=== PATIENT | male | born 1940 | race Caucasian/White ===

== ENCOUNTER 2018-03-09 10:20 | Inpatient (IN) | payer MEDICARE, OTHER ==
[2018-03-09] MEDS ORDERED: Furosemide 40 MG/4 ML VIAL IVPUSH ONE (11:32)
[2018-03-09] MEDS ORDERED: Sodium Chloride 0.9% 10 ML Syringe FLUSH PRN ×3 (11:33→14:11)
--- NOTE | 2018-03-09 11:44 | EDM.PDOC ---
ED HPI GENERAL MEDICAL PROBLEM - General Chief Complaint: Cardiovascular Problem Stated Complaint: SOB AND LEGS SWELLING Time Seen by Provider: 03/09/18 11:01 Source of Information: Reports: Patient History Limitations: Reports: No Limitations - History of Present Illness INITIAL COMMENTS - FREE TEXT/NARRATIVE: Patient is a 77-year-old male who presents ED complaining of bilateral lower extremity swelling with increasing shortness of breath over the past 2 wks. 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 At one point patient was on chemotherapy to which has been discontinued. Currently he has a history of heart murmur secondary to rheumatic fever. Patient is more short of breath with exertion. He's been experiencing orthopnea with PND. Patient has been evaluated by cardiology and has had a echocardiogram and stress test with findings. Unknown when this occurred. Patient denies any increase weight as of recent. Baseline is approximately 135 pounds. Sputum has been clear frothy at times. He has no history of congestive heart failure. There's been no diarrhea Patient denies any fevers, chills, diaphoresis, nausea/ vomiting, blood in stool, and dysuria. He denies any additional medical history and is currently on no medications. Surgical history includes colectomy 20%, removal of liver approximate 9%, ankle cystectomy. Patient's PCP is Dr. Tatum. Patient does not smoke utilize alcohol or recreational drugs. Lower Abdomen Pain Score (Numeric/FACES): 7 - Related Data Allergies Allergy/AdvReac Type Severity Reaction Status Date / Time oxyplatin Allergy Other Uncoded 03/09/18 17:10 Past Medical History Oncologic (Cancer) History: Reports: Colon, Prostate Social & Family History - Tobacco Use Smoking Status *Q: Unknown Ever Smoked ED ROS GENERAL - Review of Systems Review Of Systems: See Below Constitutional: Reports: Decreased Appetite. Denies: Fever, Chills, Malaise, Weakness, Fatigue, Night Sweats, Diaphoresis HEENT: Reports: No Symptoms Respiratory: Reports: Shortness of Breath, Cough, Sputum. Denies: Wheezing, Pleuritic Chest Pain, Hemoptysis Cardiovascular: Reports: Dyspnea on Exertion, Orthopnea, PND. Denies: Chest Pain, Blood Pressure Problem, Claudication, Edema, Lightheadedness, Palpitations , Syncope GI/Abdominal: Reports: Abdominal Pain, Decreased Appetite. Denies: Black Stool , Bloody Stool, Constipation, Diarrhea, Hematemesis, Vomiting : Reports: No Symptoms Musculoskeletal: Reports: No Symptoms Skin: Reports: No Symptoms Neurological: Denies: Dizziness, Headache, Numbness, Pre-Existing Deficit, Tingling, Difficulty Walking, Weakness Psychiatric: Reports: No Symptoms ED EXAM, GENERAL - Physical Exam Exam: See Below Exam Limited By: No Limitations General Appearance: Alert, WD/WN, Mild Distress, Cachetic Eye Exam: Bilateral Eye: EOMI, Normal Inspection, PERRL Ears: Hearing Grossly Normal Nose: Normal Inspection Throat/Mouth: Normal Inspection, Normal Oropharynx, Normal Voice, No Airway Compromise Head: Atraumatic, Normocephalic Neck: Normal Inspection, Other (JVD) Respiratory/Chest: No Respiratory Distress, Lungs Clear, Normal Breath Sounds, No Accessory Muscle Use, Chest Non-Tender Cardiovascular: Normal Peripheral Pulses, Regular Rate, Rhythm, Systolic Murmur Peripheral Pulses: 4+: Radial (L), Radial (R) GI/Abdominal: Normal Bowel Sounds, Soft, No Organomegaly, No Distention, Tender (lower abdomen) Back Exam: Normal Inspection Extremities: Normal Inspection, Normal Range of Motion, Non-Tender, Normal Capillary Refill, Pedal Edema (pitting to the lower extremities bilaterally. extends to the knees. trace edema mid thigh. ) Neurological: Alert, Oriented, CN II-XII Intact, Normal Cognition, No Motor/ Sensory Deficits Psychiatric: Normal Affect, Normal Mood Skin Exam: Warm, Dry, Intact Course - Vital Signs Last Recorded V/S: Last Vital Signs Temp 99.3 F 03/11/18 08:27 Pulse 87 03/11/18 08:27 Resp 20 03/11/18 08:27 BP 131/76 03/11/18 08:27 Pulse Ox 97 03/11/18 08:27 - Orders/Labs/Meds Orders: Medication Orders Acetaminophen (Tylenol) 650 mg PO Q4H PRN PRN Reason: Pain (Mild 1-3)/fever Last Admin: 03/11/18 06:11 Dose: 650 mg Albuterol (Proventil Neb Soln) 2.5 mg NEB Q2H PRN PRN Reason: Shortness Of Breath/wheezing Albuterol/Ipratropium (Duoneb 3.0-0.5 Mg/3 Ml) 3 ml NEB Q4H PRN PRN Reason: Shortness Of Breath/wheezing Benzocaine/Menthol (Cepacol Sore Throat) 1 lozenge MUCMEM Q4HR PRN PRN Reason: Cough Last Admin: 03/10/18 17:22 Dose: 1 lozenge Admin: 03/09/18 20:40 Dose: 1 lozenge Bisacodyl (Dulcolax) 5 mg PO DAILY PRN PRN Reason: Constipation Docusate Sodium (Colace) 100 mg PO BID PRN PRN Reason: Constipation Dronabinol (Marinol) 2.5 mg PO TIDAC [facility] Last Admin: 03/11/18 06:13 Dose: 2.5 mg Admin: 03/10/18 17:18 Dose: 2.5 mg Admin: 03/10/18 12:30 Dose: 2.5 mg Admin: 03/10/18 09:24 Dose: 2.5 mg Enoxaparin Sodium (Lovenox) 40 mg SUBCUT 1100 [facility] Last Admin: 03/10/18 13:29 Dose: 40 mg Famotidine (Pepcid) 20 mg PO DAILY [facility] Last Admin: 03/11/18 09:00 Dose: 20 mg Admin: 03/10/18 09:24 Dose: 20 mg Hydralazine HCl (Apresoline) 20 mg IVPUSH Q4H PRN PRN Reason: Hypertension Last Admin: 03/09/18 22:25 Dose: 20 mg Sodium Chloride (Normal Saline) 250 mls @ 80 mls/hr IV ASDIRECTED [facility] Last Admin: 03/09/18 14:13 Dose: 80 mls/hr Furosemide 100 mg/ Sodium (Chloride) 100 mls @ 3 mls/hr IV TITRATE DIANNA; Protocol Lorazepam (Ativan) 2 mg IVPUSH Q4H PRN PRN Reason: Seizures Magnesium Hydroxide (Milk Of Magnesia) 30 ml PO Q12H PRN PRN Reason: Constipation Last Admin: 03/10/18 22:11 Dose: 30 ml Magnesium Sulfate (Pharmacy To Dose - Magnesium Replacement) 1 dose .XX ASDIRECTED [facility] Metoprolol Tartrate (Lopressor) 5 mg IVPUSH Q4H PRN PRN Reason: Tachycardia Last Admin: 03/10/18 00:04 Dose: 5 mg Mirtazapine (Remeron) 30 mg PO BEDTIME [facility] Last Admin: 03/10/18 20:45 Dose: 30 mg Admin: 03/09/18 20:57 Dose: 30 mg Morphine Sulfate (Morphine) 1 mg IVPUSH Q4H PRN PRN Reason: Pain (severe 7-10) Stop: 03/13/18 17:47 Last Admin: 03/10/18 09:52 Dose: 1 mg Admin: 03/10/18 06:35 Dose: 1 mg Admin: 03/09/18 22:49 Dose: 1 mg Ondansetron HCl (Zofran Odt) 4 mg PO Q4H PRN PRN Reason: nausea, able to take PO Ondansetron HCl (Zofran) 4 mg IV Q4H PRN PRN Reason: Nausea/Vomiting Oxycodone/Acetaminophen (Percocet 325-5 Mg) 1 tab PO Q4H PRN PRN Reason: Pain (moderate 4-6) Polyethylene Glycol (Miralax) 17 gm PO DAILY PRN PRN Reason: Constipation Potassium Chloride (Pharmacy To Dose - Potassium Replacement) 1 dose .XX ASDIRECTED [facility] Senna/Docusate Sodium (Senna Plus) 1 tab PO BID PRN PRN Reason: Constipation Sodium Chloride (Saline Flush) 10 ml FLUSH ASDIRECTED PRN PRN Reason: Keep Vein Open Last Admin: 03/09/18 12:13 Dose: 10 ml Sodium Chloride (Saline Flush) 10 ml FLUSH ONETIME PRN PRN Reason: IV FLUSH Sodium Chloride (Saline Flush) 10 ml FLUSH ONETIME PRN PRN Reason: IV FLUSH Last Admin: 03/09/18 14:13 Dose: 10 ml Temazepam (Restoril) 7.5 mg PO BEDTIME PRN PRN Reason: Sleep Last Admin: 03/10/18 22:09 Dose: 7.5 mg Labs: Laboratory Tests 03/09/18 03/09/18 03/09/18 Range/Units 12:10 12:10 12:10 WBC 6.65 (4.23-9.07) K/mm3 RBC 3.66 L (4.63-6.08) M/mm3 Hgb 12.2 L (13.7-17.5) gm/L Hct 37.4 L (40.1-51.0) % MCV 102.2 H (79.0-92.2) fl MCH 33.3 H (25.7-32.2) pg MCHC 32.6 (32.2-35.5) g/dl RDW Std Deviation 61.4 H (35.1-43.9) fL Plt Count 195 (163-337) K/mm3 MPV 9.5 (9.4-12.3) fl Neutrophils % (Manual) 79 H (40-60) % Band Neutrophils % 0 (0-10) % Lymphocytes % (Manual) 17 L (20-40) % Atypical Lymphs % 0 % Monocytes % (Manual) 3 (2-10) % Eosinophils % (Manual) 1 (0.8-7.0) % Basophils % (Manual) 0 L (0.2-1.2) Platelet Estimate Adequate Anisocytosis Moderate Macrocytosis 1+ slight RBC Morph Comment Abnormal Sodium 137 (136-145) mEq/L Potassium 3.6 (3.5-5.1) mEq/L Chloride 102 (98-107) mEq/L Carbon Dioxide 27 (21-32) mEq/L Anion Gap 11.6 (5-15) BUN 21 H (7-18) mg/dL Creatinine 1.0 (0.7-1.3) mg/dL Est Cr Clr Drug Dosing 53.58 mL/min Estimated GFR (MDRD) > 60 (>60) mL/min BUN/Creatinine Ratio 21.0 H (14-18) Glucose 117 H (83-115) mg/dL Calcium 8.9 (8.5-10.1) mg/dL Magnesium 1.9 (1.8-2.4) mg/dl Total Bilirubin 1.2 H (0.2-1.0) mg/dL AST 72 H (15-37) U/L ALT 64 H (16-63) U/L Alkaline Phosphatase 560 H (46-116) U/L Troponin I < 0.017 (0.00-0.056) ng/mL C-Reactive Protein (<1.0) mg/dL NT-Pro-B Natriuret Pep 555 H (0-450) pg/mL Total Protein 7.3 (6.4-8.2) g/dl Albumin 2.2 L (3.4-5.0) g/dl Globulin 5.1 gm/dL Albumin/Globulin Ratio 0.4 L (1-2) TSH 3rd Generation 3.658 (0.358-3.74) uIU/mL Urine Color (Yellow) Urine Appearance (Clear) Urine pH (5.0-8.0) Ur Specific Boykins (1.005-1.030) Urine Protein (Negative) Urine Glucose (UA) (Negative) Urine Ketones (Negative) Urine Occult Blood (Negative) Urine Nitrite (Negative) Urine Bilirubin (Negative) Urine Urobilinogen (0.2-1.0) Ur Leukocyte Esterase (Negative) Urine RBC (0-5) /hpf Urine WBC (0-5) /hpf Ur Epithelial Cells (0-5) /hpf Urine Bacteria (FEW) /hpf Urine Mucus (FEW) /hpf 03/09/18 03/09/18 Range/Units 12:10 13:35 WBC (4.23-9.07) K/mm3 RBC (4.63-6.08) M/mm3 Hgb (13.7-17.5) gm/L Hct (40.1-51.0) % MCV (79.0-92.2) fl MCH (25.7-32.2) pg MCHC (32.2-35.5) g/dl RDW Std Deviation (35.1-43.9) fL Plt Count (163-337) K/mm3 MPV (9.4-12.3) fl Neutrophils % (Manual) (40-60) % Band Neutrophils % (0-10) % Lymphocytes % (Manual) (20-40) % Atypical Lymphs % % Monocytes % (Manual) (2-10) % Eosinophils % (Manual) (0.8-7.0) % Basophils % (Manual) (0.2-1.2) Platelet Estimate Anisocytosis Macrocytosis RBC Morph Comment Sodium (136-145) mEq/L Potassium (3.5-5.1) mEq/L Chloride (98-107) mEq/L Carbon Dioxide (21-32) mEq/L Anion Gap (5-15) BUN (7-18) mg/dL Creatinine (0.7-1.3) mg/dL Est Cr Clr Drug Dosing mL/min Estimated GFR (MDRD) (>60) mL/min BUN/Creatinine Ratio (14-18) Glucose (83-115) mg/dL Calcium (8.5-10.1) mg/dL Magnesium (1.8-2.4) mg/dl Total Bilirubin (0.2-1.0) mg/dL AST (15-37) U/L ALT (16-63) U/L Alkaline Phosphatase (46-116) U/L Troponin I (0.00-0.056) ng/mL C-Reactive Protein 5.3 H* (<1.0) mg/dL NT-Pro-B Natriuret Pep (0-450) pg/mL Total Protein (6.4-8.2) g/dl Albumin (3.4-5.0) g/dl Globulin gm/dL Albumin/Globulin Ratio (1-2) TSH 3rd Generation (0.358-3.74) uIU/mL Urine Color Light yellow (Yellow) Urine Appearance Clear (Clear) Urine pH 7.0 (5.0-8.0) Ur Specific Boykins 1.020 (1.005-1.030) Urine Protein Negative (Negative) Urine Glucose (UA) Negative (Negative) Urine Ketones Negative (Negative) Urine Occult Blood Negative (Negative) Urine Nitrite Negative (Negative) Urine Bilirubin Negative (Negative) Urine Urobilinogen 0.2 (0.2-1.0) Ur Leukocyte Esterase Negative (Negative) Urine RBC Not seen (0-5) /hpf Urine WBC Not seen (0-5) /hpf Ur Epithelial Cells 0-5 (0-5) /hpf Urine Bacteria Not seen (FEW) /hpf Urine Mucus Not seen (FEW) /hpf Meds: Medications Generic Name Dose Route Start Last Admin Trade Name Freq PRN Reason Stop Dose Admin Acetaminophen 650 mg 03/09/18 17:30 03/11/18 06:11 Tylenol PO 650 mg Q4H PRN Administration Pain (Mild 1-3)/fever Albuterol 2.5 mg 03/09/18 17:30 Proventil Neb Soln NEB Q2H PRN Shortness Of Breath/wheezing Albuterol/Ipratropium 3 ml 03/09/18 17:30 Duoneb 3.0-0.5 Mg/3 Ml NEB Q4H PRN Shortness Of Breath/wheezing Benzocaine/Menthol 1 lozenge 03/09/18 18:37 03/10/18 17:22 Cepacol Sore Throat MUCMEM 1 lozenge Q4HR PRN Administration Cough Bisacodyl 5 mg 03/09/18 17:30 Dulcolax PO DAILY PRN Constipation Docusate Sodium 100 mg 03/09/18 17:30 Colace PO BID PRN Constipation Dronabinol 2.5 mg 03/10/18 07:00 03/11/18 06:13 Marinol PO 2.5 mg TIDAC DIANNA Administration Enoxaparin Sodium 40 mg 03/10/18 11:00 03/10/18 13:29 Lovenox SUBCUT 40 mg 1100 DIANNA Administration Famotidine 20 mg 03/10/18 09:00 03/11/18 09:00 Pepcid PO 20 mg DAILY [facility] Administration Hydralazine HCl 20 mg 03/09/18 20:11 03/09/18 22:25 Apresoline IVPUSH 20 mg Q4H PRN Administration Hypertension Sodium Chloride 250 mls @ 80 mls/hr 03/09/18 14:15 03/09/18 14:13 Normal Saline IV 80 mls/hr ASDIRECTED [facility] Administration Furosemide 100 mg/ Sodium 100 mls @ 3 mls/hr 03/11/18 06:00 Chloride IV TITRATE [facility] Protocol Lorazepam 2 mg 03/09/18 20:11 Ativan IVPUSH Q4H PRN Seizures Magnesium Hydroxide 30 ml 03/09/18 17:30 03/10/18 22:11 Milk Of Magnesia PO 30 ml Q12H PRN Administration Constipation Magnesium Sulfate 1 dose 03/09/18 20:15 Pharmacy To Dose - Magnesium Replacement .XX ASDIRECTED [facility] Metoprolol Tartrate 5 mg 03/09/18 20:11 03/10/18 00:04 Lopressor IVPUSH 5 mg Q4H PRN Administration Tachycardia Mirtazapine 30 mg 03/09/18 21:00 03/10/18 20:45 Remeron PO 30 mg BEDTIME DIANNA Administration Morphine Sulfate 1 mg 03/09/18 20:12 03/10/18 09:52 Morphine IVPUSH 03/13/18 17:47 1 mg Q4H PRN Administration Pain (severe 7-10) Ondansetron HCl 4 mg 03/09/18 17:30 Zofran Odt PO Q4H PRN nausea, able to take PO Ondansetron HCl 4 mg 03/09/18 17:30 Zofran IV Q4H PRN Nausea/Vomiting Oxycodone/Acetaminophen 1 tab 03/09/18 17:30 Percocet 325-5 Mg PO Q4H PRN Pain (moderate 4-6) Polyethylene Glycol 17 gm 03/09/18 17:30 Miralax PO DAILY PRN Constipation Potassium Chloride 1 dose 03/09/18 20:15 Pharmacy To Dose - Potassium Replacement .XX ASDIRECTED DIANNA Senna/Docusate Sodium 1 tab 03/09/18 17:30 Senna Plus PO BID PRN Constipation Sodium Chloride 10 ml 03/09/18 11:33 03/09/18 12:13 Saline Flush FLUSH 10 ml ASDIRECTED PRN Administration Keep Vein Open Sodium Chloride 10 ml 03/09/18 13:56 Saline Flush FLUSH ONETIME PRN IV FLUSH Sodium Chloride 10 ml 03/09/18 14:11 03/09/18 14:13 Saline Flush FLUSH 10 ml ONETIME PRN Administration IV FLUSH Temazepam 7.5 mg 03/09/18 17:30 03/10/18 22:09 Restoril PO 7.5 mg BEDTIME PRN Administration Sleep Discontinued Medications Generic Name Dose Route Start Last Admin Trade Name Freq PRN Reason Stop Dose Admin Famotidine 20 mg 03/09/18 21:00 03/09/18 20:58 Pepcid PO 20 mg BID DIANNA Administration Furosemide 40 mg 03/09/18 11:32 03/09/18 12:13 Lasix IVPUSH 03/09/18 11:33 40 mg NOW ONE Administration Heparin Sodium (Porcine) 500 units 03/10/18 13:00 03/10/18 13:27 Heparin Lock Flush 100 Units/Ml FLUSH 03/10/18 13:01 500 units ASDIRECTED ONE Administration Hydromorphone HCl 0.5 mg 03/09/18 17:30 Dilaudid IVPUSH Q2H PRN Pain (severe 7-10) Furosemide 100 mg/ Sodium 100 mls @ 3 mls/hr 03/10/18 07:00 Chloride IV TITRATE DIANNA Protocol Furosemide 100 mg/ Sodium 100 mls @ 3 mls/hr 03/10/18 01:00 03/10/18 01:19 Chloride IV 3 mls/hr TITRATE DIANNA Administration Protocol Iopamidol 100 ml 03/09/18 13:56 Isovue-300 (61%) IVPUSH 03/09/18 13:57 ONETIME ONE Iopamidol 100 ml 03/09/18 14:11 03/09/18 14:13 Isovue-370 (76%) IVPUSH 03/09/18 14:12 100 ml ONETIME ONE Administration Magnesium Oxide 400 mg 03/09/18 20:30 03/09/18 20:57 Magnesium Oxide PO 03/09/18 20:31 400 mg ONETIME ONE Administration Morphine Sulfate 2 mg 03/09/18 17:47 Morphine IVPUSH 03/10/18 17:47 Q2H PRN Pain (severe 7-10) Morphine Sulfate 1 mg 03/09/18 17:48 03/09/18 18:13 Morphine IVPUSH 03/09/18 17:49 1 mg ONETIME ONE Administration Potassium Chloride 40 meq 03/09/18 21:00 03/10/18 00:11 Klor-Con M20 PO 03/10/18 01:01 40 meq Q4H DIANNA Administration - Re-Assessments/Exams Free Text/Narrative Re-Assessment/Exam: IV established with Lasix 40 mg IVP. Patient has pitting edema to his lower extremities that extends up to the knee. Trace edema noted to the mid thigh. He' s been more increased shortness of breath. Has PND and orthopnea. Been coughing up clear fluids. Initial labs and studies will include CBC, chem 14, magnesium, proBNP, troponin , TSH, UA, bladder scan, chest x-ray with abdominal series. CXR: reviewed with Dr. Moy. Findings consistent for either diffuse lung CA and or pneumonia. I have ordered blood cultures x 2. Awaiting for labs to dictate treatment. In addition I have asked for Padmini with [facility] come speak with the family to discuss hospice. Per family and patient this has not been arranged with stopping chemo. Following administration of lasix patient states he is feeling better. States shortness of breath is not as severe. Awaiting for labs. 03/09/18 13:14 Abdominal series: Supine and upright views of the abdomen were obtained as well as frontal view of the chest. Comparison: No previous abdominal x-ray, previous chest x-ray of 10/07/13. Numerous nodular densities are seen throughout both sides of the chest most likely representing metastatic disease. Findings are an interval change from previous exam. Right sided infusion catheter is seen. Small bilateral pleural effusions are seen. Heart does not appear enlarged. Degenerative change is noted within both shoulders. Surgical clips are seen within the upper abdomen. Bowel gas pattern appears normal. Slight degenerative change noted within the spine. Impression: 1. Findings felt compatible with diffuse metastatic disease within both sides of the chest. 2. Small pleural effusions on both sides. 3. Other incidental findings. 03/09/18 13:31 Labs reviewed: White blood cell count 6.65, hemoglobin 12.2, platelet count 195, neutrophil percent is 79 with left shift, sodium 137, potassium 3.6, hCG level 0.6, creatinine 1.0, glucose 117, magnesium 1.9, AST ALT and alkaline phosphatase phosphatase are a all elevated. Total bilirubin is 1.2. Troponin less than 0.017. ProBNP is 555, and TSH 3.658. Albumin is 2.2. Total protein 7.3. UA is pending. 03/09/18 13:50 reassessment, per nursing staff patient became quite short of breath with exertion. SPO2 upon returning was 80%. Placed on O2 via NC with readings of 95%. Patient had 2 L/m. We will go ahead and obtain CT the chest abdomen pelvis with IV contrast only. Patient states he is unable to drink the oral contrast at this time. CT chest Technique: Multiple axial sections through the chest were obtained. Intravenous contrast was utilized. Study has been performed as a pulmonary angiogram protocol. Comparison: Prior chest CT study of 11/21/13. Findings: Moderately large bilateral pleural effusions are seen. Innumerable nodular densities are seen throughout both lungs compatible with multiple metastatic nodules. Pulmonary arteries are well-opacified. No filling defects are seen to indicate pulmonary embolism. Pleural effusions causes atelectasis within both lungs. Atherosclerotic calcification is seen within the aorta. There are several lymph nodes within the mediastinum believed to represent metastatic disease. Infusion port is seen from the right side. Bone window settings shows degenerative change within the spine. No acute osseous abnormality is seen. Degenerative change also noted within both shoulders. Impression: 1. Moderately large bilateral pleural effusions with causes prominent atelectasis on both sides of the lungs. 2. Innumerable metastatic nodules within both sides of the chest. Mild mediastinal adenopathy is noted. 3. Other incidental findings. No pulmonary embolism is seen. Note: Pleural effusions and lung nodules are an interval change from previous chest CT. Mediastinal lymph nodes are also an interval change. CT abdomen and pelvis Technique: Multiple axial sections were obtained from above the dome of the diaphragm inferiorly through the pubic symphysis. Intravenous contrast was utilized. No oral contrast was given. Comparison: Prior CT abdomen and pelvis exam of 11/21/13. Findings: Multiple surgical clips are seen within the abdomen. Several surgical clips are seen within the liver. Numerous low density metastatic lesions are seen within the right and left lobes of the liver. These findings have worsened from previous exam. Spleen appears within normal limits. Kidneys show symmetric contrast enhancement. Dilated left renal pelvis is seen which is an interval change from previous CT exam. Difficult to exclude a nonvisualized obstructing lesion within the proximal or mid ureter. Retroperitoneal adenopathy is present. Small amount of ascites is identified within the abdomen and pelvis. Diffuse body wall edema is also seen. Pancreas is mostly atrophied. Adrenal glands show no discrete abnormality although right adrenal gland is not well seen. Delayed images shows contrast within the bladder. Scattered degenerative change is noted within the spine. Impression: 1. Multiple low-density liver lesions which have increased in prominence from prior CT exam compatible with liver metastatic disease. 2. Mild retroperitoneal adenopathy is seen. 3. Small amount of ascites seen within the abdomen as well as diffuse body wall edema. 4. Dilated left renal pelvis, etiology not seen on this study and cannot exclude an obstructing proximal to mid ureteral lesion. This is an interval change from previous exam. Retrograde study would be needed to further evaluate if clinically indicated. 5. No other acute finding is seen. Discuss results of CT the chest and abdomen with the patient. Patient requests admission to the hospital here for bilateral thoracentesis. He will follow-up with urology outpatient for the dilated left renal pelvis suspecting obstruction from mid ureteral lesion. Patient does not want to be transferred to [place] for definitive treatment for bilateral pleural effusions and also retrograde study of the urinary system to evaluate for obstruction. I have asked nursing staff to obtain a MCG. I've attempted to contact Dr. Alanis with no answer. I have spoken with Dr. Alanis and he has accepted the patient. Departure - Departure Time of Disposition: 15:47 Disposition: Admitted As Inpatient 66 Condition: Poor Clinical Impression: Prostate cancer metastatic to multiple sites, Metastatic colorectal cancer, Pleural effusion, Bilateral pleural effusion Lung malignancy Qualifiers: Laterality: unspecified laterality Lung location: unspecified part of lung Qualified Code(s): C34.90 - Malignant neoplasm of unspecified part of unspecified bronchus or lung Ascites Qualifiers: Ascites type: malignant Qualified Code(s): R18.0 - Malignant ascites Liver cancer Qualifiers: Liver malignancy type: unspecified liver malignancy Qualified Code(s): C22.9 - Malignant neoplasm of liver, not specified as primary or secondary
--- NOTE | 2018-03-09 12:47 | CR ---
Abdominal series: Supine and upright views of the abdomen were obtained as well as frontal view of the chest. Comparison: No previous abdominal x-ray, previous chest x-ray of 10/07/13. Numerous nodular densities are seen throughout both sides of the chest most likely representing metastatic disease. Findings are an interval change from previous exam. Right sided infusion catheter is seen. Small bilateral pleural effusions are seen. Heart does not appear enlarged. Degenerative change is noted within both shoulders. Surgical clips are seen within the upper abdomen. Bowel gas pattern appears normal. Slight degenerative change noted within the spine. Impression: 1. Findings felt compatible with diffuse metastatic disease within both sides of the chest. 2. Small pleural effusions on both sides. 3. Other incidental findings. Diagnostic code #9
[2018-03-09] MEDS ORDERED: Iopamidol 612 MG/ML 100 ML Bottle IVPUSH ONE (13:56)
[2018-03-09] MEDS ORDERED: Iopamidol 755 Mg/ML 100 ML Bottle IVPUSH ONE (14:11)
[2018-03-09] MEDS ORDERED: Sodium Chloride 0.9% 250 ML IV SCH (14:15)
--- NOTE | 2018-03-09 14:54 | CT ---
CT chest Technique: Multiple axial sections through the chest were obtained. Intravenous contrast was utilized. Study has been performed as a pulmonary angiogram protocol. Comparison: Prior chest CT study of 11/21/13. Findings: Moderately large bilateral pleural effusions are seen. Innumerable nodular densities are seen throughout both lungs compatible with multiple metastatic nodules. Pulmonary arteries are well-opacified. No filling defects are seen to indicate pulmonary embolism. Pleural effusions causes atelectasis within both lungs. Atherosclerotic calcification is seen within the aorta. There are several lymph nodes within the mediastinum believed to represent metastatic disease. Infusion port is seen from the right side. Bone window settings shows degenerative change within the spine. No acute osseous abnormality is seen. Degenerative change also noted within both shoulders. Impression: 1. Moderately large bilateral pleural effusions with causes prominent atelectasis on both sides of the lungs. 2. Innumerable metastatic nodules within both sides of the chest. Mild mediastinal adenopathy is noted. 3. Other incidental findings. No pulmonary embolism is seen. Note: Pleural effusions and lung nodules are an interval change from previous chest CT. Mediastinal lymph nodes are also an interval change. Diagnostic code #9 CT abdomen and pelvis Technique: Multiple axial sections were obtained from above the dome of the diaphragm inferiorly through the pubic symphysis. Intravenous contrast was utilized. No oral contrast was given. Comparison: Prior CT abdomen and pelvis exam of 11/21/13. Findings: Multiple surgical clips are seen within the abdomen. Several surgical clips are seen within the liver. Numerous low density metastatic lesions are seen within the right and left lobes of the liver. These findings have worsened from previous exam. Spleen appears within normal limits. Kidneys show symmetric contrast enhancement. Dilated left renal pelvis is seen which is an interval change from previous CT exam. Difficult to exclude a nonvisualized obstructing lesion within the proximal or mid ureter. Retroperitoneal adenopathy is present. Small amount of ascites is identified within the abdomen and pelvis. Diffuse body wall edema is also seen. Pancreas is mostly atrophied. Adrenal glands show no discrete abnormality although right adrenal gland is not well seen. Delayed images shows contrast within the bladder. Scattered degenerative change is noted within the spine. Impression: 1. Multiple low-density liver lesions which have increased in prominence from prior CT exam compatible with liver metastatic disease. 2. Mild retroperitoneal adenopathy is seen. 3. Small amount of ascites seen within the abdomen as well as diffuse body wall edema. 4. Dilated left renal pelvis, etiology not seen on this study and cannot exclude an obstructing proximal to mid ureteral lesion. This is an interval change from previous exam. Retrograde study would be needed to further evaluate if clinically indicated. 5. No other acute finding is seen. Diagnostic code #9
--- NOTE | 2018-03-09 15:45 | PCM.HP ---
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 He complains of 7/10 abdominal pain. He reports no fever, chills, nausea , vomiting, diarrhea, chest pain, or GI/ complaints. His symptoms improved after receiving oxygen and 40 mg of Lasix in the ED. His initial workup in the ED showed a CBC remarkable for RBC 3.66, Hgb 12.2, HCT 37.4, MCV 102.2, MCH 33.3, RDW 61.4, neutrophils 79%, lymphocytes 17%. His chemistry is remarkable for BUN 21, Glucose 117, Bilirubin 1.2, AST 72, ALT 64, Alkaline Phos 560, CRP 5.3, BNP 555, Albumin 2.2. UA is not impressive for UTI. CXR shows diffuse metastatic disease with small pleural effusions within both sides of the chest. CT Chest shows moderately large bilateral pleural effusions with causes prominent atelectasis on both sides of the lungs and innumerable metastatic nodules within both sides of the chest. CT abdomen and pelvis shows liver metastatic disease, mild retroperitoneal adenopathy, small amount of ascites, diffuse body wall edema, dilated left renal pelvis He is subsequently admitted to the medical floor on telemetry. He is a DNR/DNI/ Comfort Measures. Her PCP is Dr Jerome Tatum. Lower Abdomen Pain Score (Numeric/FACES): 7 - Related Data Allergies/Adverse Reactions: Allergies Allergy/AdvReac Type Severity Reaction Status Date / Time oxyplatin Allergy Other Uncoded 03/09/18 17:10 Past Medical History Oncologic (Cancer) History: Reports: Colon, Prostate Social & Family History - Tobacco Use Smoking Status *Q: Unknown Ever Smoked H&P Review of Systems - Review of Systems: Review Of Systems: See Below General: Reports: Weakness, Decreased Appetite. Denies: Fever, Chills, Malaise , Fatigue, Night Sweats, Diaphoresis HEENT: Reports: No Symptoms Pulmonary: Reports: Shortness of Breath, Cough, Sputum. Denies: Wheezing, Pleuritic Chest Pain, Hemoptysis Cardiovascular: Reports: Dyspnea on Exertion, Orthopnea, PND, Edema (bilateral) . Denies: Chest Pain, Palpitations, Lightheadedness, Syncope, Blood Pressure Problem Gastrointestinal: Reports: Abdominal Pain (05/01), Decreased Appetite. Denies: Black Stool, Bloody Stool, Constipation, Diarrhea, Hematemesis, Vomiting Genitourinary: Reports: No Symptoms Musculoskeletal: Reports: No Symptoms Skin: Reports: No Symptoms Psychiatric: Reports: No Symptoms Neurological: Reports: Dizziness, Headache, Numbness, Pre-Existing Deficit, Tingling, Difficulty Walking, Weakness Hematologic/Lymphatic: Reports: No Symptoms Immunologic: Reports: No Symptoms Exam - Exam Exam: See Below - Vital Signs Vital Signs: Last Vital Signs Temp 99.0 F 03/09/18 10:32 Pulse 90 03/09/18 10:32 Resp 18 03/09/18 10:32 BP 127/84 03/09/18 10:32 Pulse Ox 89 L 03/09/18 10:32 Weight: 61.235 kg - Exam Quality Assessment: Supplemental Oxygen (2L nasal cannula) General: Alert, Oriented, Cooperative, Mild Distress, Other (Cachetic) HEENT: PERRLA, Hearing Intact, Mucosa Moist & [place], Nares Patent, Normal Nasal Septum, Posterior Pharynx Clear, Conjunctiva Clear, EOMI, EACs Clear, TMs Clear Neck: Supple, Trachea Midline, JVD Lungs: Clear to Auscultation, Normal Respiratory Effort Cardiovascular: Regular Rate, Regular Rhythm, Systolic Murmur GI/Abdominal Exam: Normal Bowel Sounds, Soft, No Organomegaly, No Distention, No Abnormal Bruit, No Mass, Pelvis Stable, Tender (lower abdomen) (Male) Exam: Deferred Rectal (Males) Exam: Deferred Extremities: Normal Inspection, Normal Range of Motion, Non-Tender, Normal Capillary Refill, Pedal Edema (bilateral, to the knees) Peripheral Pulses: 1+: Posterior Tibial (L), Posterior Tibial (R), Dorsalis Pedis (L), Dorsalis Pedis (R) Skin: Warm, Dry, Intact Neurological: Cranial Nerves Intact (grossly) Neuro Extensive - Mental Status: Alert, Oriented x3, Normal Mood/Affect, Normal Cognition, Memory Intact Psychiatric: Alert, Normal Affect, Normal Mood - Patient Data Lab Results Last 24 hrs: Laboratory Results - last 24 hr 03/09/18 03/09/18 03/09/18 Range/Units 12:10 12:10 12:10 WBC 6.65 (4.23-9.07) K/mm3 RBC 3.66 L (4.63-6.08) M/mm3 Hgb 12.2 L (13.7-17.5) gm/L Hct 37.4 L (40.1-51.0) % MCV 102.2 H (79.0-92.2) fl MCH 33.3 H (25.7-32.2) pg MCHC 32.6 (32.2-35.5) g/dl RDW Std Deviation 61.4 H (35.1-43.9) fL Plt Count 195 (163-337) K/mm3 MPV 9.5 (9.4-12.3) fl Neutrophils % (Manual) 79 H (40-60) % Band Neutrophils % 0 (0-10) % Lymphocytes % (Manual) 17 L (20-40) % Atypical Lymphs % 0 % Monocytes % (Manual) 3 (2-10) % Eosinophils % (Manual) 1 (0.8-7.0) % Basophils % (Manual) 0 L (0.2-1.2) Platelet Estimate Adequate Anisocytosis Moderate Macrocytosis 1+ slight RBC Morph Comment Abnormal Sodium 137 (136-145) mEq/L Potassium 3.6 (3.5-5.1) mEq/L Chloride 102 (98-107) mEq/L Carbon Dioxide 27 (21-32) mEq/L Anion Gap 11.6 (5-15) BUN 21 H (7-18) mg/dL Creatinine 1.0 (0.7-1.3) mg/dL Est Cr Clr Drug Dosing 53.58 mL/min Estimated GFR (MDRD) > 60 (>60) mL/min BUN/Creatinine Ratio 21.0 H (14-18) Glucose 117 H (83-115) mg/dL Calcium 8.9 (8.5-10.1) mg/dL Magnesium 1.9 (1.8-2.4) mg/dl Total Bilirubin 1.2 H (0.2-1.0) mg/dL AST 72 H (15-37) U/L ALT 64 H (16-63) U/L Alkaline Phosphatase 560 H (46-116) U/L Troponin I < 0.017 (0.00-0.056) ng/mL C-Reactive Protein (<1.0) mg/dL NT-Pro-B Natriuret Pep 555 H (0-450) pg/mL Total Protein 7.3 (6.4-8.2) g/dl Albumin 2.2 L (3.4-5.0) g/dl Globulin 5.1 gm/dL Albumin/Globulin Ratio 0.4 L (1-2) TSH 3rd Generation 3.658 (0.358-3.74) uIU/mL Urine Color (Yellow) Urine Appearance (Clear) Urine pH (5.0-8.0) Ur Specific Nordman (1.005-1.030) Urine Protein (Negative) Urine Glucose (UA) (Negative) Urine Ketones (Negative) Urine Occult Blood (Negative) Urine Nitrite (Negative) Urine Bilirubin (Negative) Urine Urobilinogen (0.2-1.0) Ur Leukocyte Esterase (Negative) 03/09/18 03/09/18 Range/Units 12:10 13:35 WBC (4.23-9.07) K/mm3 RBC (4.63-6.08) M/mm3 Hgb (13.7-17.5) gm/L Hct (40.1-51.0) % MCV (79.0-92.2) fl MCH (25.7-32.2) pg MCHC (32.2-35.5) g/dl RDW Std Deviation (35.1-43.9) fL Plt Count (163-337) K/mm3 MPV (9.4-12.3) fl Neutrophils % (Manual) (40-60) % Band Neutrophils % (0-10) % Lymphocytes % (Manual) (20-40) % Atypical Lymphs % % Monocytes % (Manual) (2-10) % Eosinophils % (Manual) (0.8-7.0) % Basophils % (Manual) (0.2-1.2) Platelet Estimate Anisocytosis Macrocytosis RBC Morph Comment Sodium (136-145) mEq/L Potassium (3.5-5.1) mEq/L Chloride (98-107) mEq/L Carbon Dioxide (21-32) mEq/L Anion Gap (5-15) BUN (7-18) mg/dL Creatinine (0.7-1.3) mg/dL Est Cr Clr Drug Dosing mL/min Estimated GFR (MDRD) (>60) mL/min BUN/Creatinine Ratio (14-18) Glucose (83-115) mg/dL Calcium (8.5-10.1) mg/dL Magnesium (1.8-2.4) mg/dl Total Bilirubin (0.2-1.0) mg/dL AST (15-37) U/L ALT (16-63) U/L Alkaline Phosphatase (46-116) U/L Troponin I (0.00-0.056) ng/mL C-Reactive Protein 5.3 H* (<1.0) mg/dL NT-Pro-B Natriuret Pep (0-450) pg/mL Total Protein (6.4-8.2) g/dl Albumin (3.4-5.0) g/dl Globulin gm/dL Albumin/Globulin Ratio (1-2) TSH 3rd Generation (0.358-3.74) uIU/mL Urine Color Light yellow (Yellow) Urine Appearance Clear (Clear) Urine pH 7.0 (5.0-8.0) Ur Specific Nordman 1.020 (1.005-1.030) Urine Protein Negative (Negative) Urine Glucose (UA) Negative (Negative) Urine Ketones Negative (Negative) Urine Occult Blood Negative (Negative) Urine Nitrite Negative (Negative) Urine Bilirubin Negative (Negative) Urine Urobilinogen 0.2 (0.2-1.0) Ur Leukocyte Esterase Negative (Negative) Result Diagrams: 03/09/18 12:10 03/09/18 12:10 - Problem List (1) End of life care SNOMED Code(s): 115913794, 946341066 ICD Code: Z51.5 - ENCOUNTER FOR PALLIATIVE CARE Status: Acute Priority: High Current Visit: Yes (2) Malignant pleural effusion SNOMED Code(s): 28334634 ICD Code: J91.0 - MALIGNANT PLEURAL EFFUSION Status: Acute Priority: High Current Visit: Yes (3) Stage IV carcinoma of colon SNOMED Code(s): 862504956 ICD Code: C18.9 - MALIGNANT NEOPLASM OF COLON, UNSPECIFIED Status: Chronic Priority: Low Current Visit: Yes (4) Stage IV adenocarcinoma of prostate SNOMED Code(s): 687502658, 165564628 ICD Code: C61 - MALIGNANT NEOPLASM OF PROSTATE Status: Chronic Priority: Low Current Visit: Yes (5) Metastasis to lung SNOMED Code(s): 38997482 ICD Code: C78.00 - SECONDARY MALIGNANT NEOPLASM OF UNSPECIFIED LUNG Status : Chronic Priority: Low Current Visit: Yes Qualifiers: Laterality: unspecified laterality Qualified Code(s): C78.00 - Secondary malignant neoplasm of unspecified lung (6) Cachexia SNOMED Code(s): 413089980 ICD Code: R64 - CACHEXIA Status: Chronic Priority: Low Current Visit: Yes (7) Dilated renal pelvis SNOMED Code(s): 443751414 ICD Code: N28.89 - OTHER SPECIFIED DISORDERS OF KIDNEY AND URETER Status: Acute Priority: Medium Current Visit: Yes (8) Metastases to the liver Status: Chronic Priority: Low Current Visit: Yes Problem List Initiated/Reviewed/Updated: Yes Orders Last 24hrs: Active Orders 24 hr Category Date Time Status Peripheral IV Care [RC] . DIRECTED Care 03/09/18 11:33 Active Consult to Poultry Farm Laborer [CONS] Routine Cons 03/09/18 12:27 Active CULTURE BLOOD [BC] Stat Lab 03/09/18 12:54 Received CULTURE BLOOD [BC] Stat Lab 03/09/18 13:04 Received UA W/MICROSCOPIC [URIN] Stat Lab 03/09/18 13:35 Received Sodium Chloride 0.9% [Normal Saline] 250 ml Med 03/09/18 14:15 Active IV ASDIRECTED Sodium Chloride 0.9% [Saline Flush] Med 03/09/18 11:33 Active 10 ml FLUSH ASDIRECTED PRN Sodium Chloride 0.9% [Saline Flush] Med 03/09/18 13:56 Active 10 ml FLUSH ONETIME PRN Sodium Chloride 0.9% [Saline Flush] Med 03/09/18 14:11 Active 10 ml FLUSH ONETIME PRN Blood Culture x2 Reflex Set [OM.PC] Stat Oth 03/09/18 12:26 Ordered Peripheral IV Insertion Adult [OM.PC] Routine Oth 03/09/18 11:33 Ordered Medication Orders Sodium Chloride (Normal Saline) 250 mls @ 80 mls/hr IV ASDIRECTED DIANNA Last Admin: 03/09/18 14:13 Dose: 80 mls/hr Sodium Chloride (Saline Flush) 10 ml FLUSH ASDIRECTED PRN PRN Reason: Keep Vein Open Last Admin: 03/09/18 12:13 Dose: 10 ml Sodium Chloride (Saline Flush) 10 ml FLUSH ONETIME PRN PRN Reason: IV FLUSH Sodium Chloride (Saline Flush) 10 ml FLUSH ONETIME PRN PRN Reason: IV FLUSH Last Admin: 03/09/18 14:13 Dose: 10 ml Assessment/Plan Comment:: I/P: Acute: End of Life Care -Comfort Care -Symptomatic treatment 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 -SOB with exertion, orthopnea, PND, bilateral leg edema -O2 84% on room air--> 98% on 2L nasal cannula -Lasix IV 40 mg given in ED -BNP 555, CRP 5.3 -CXR in ED--> metastatic disease with small pleural effusions within both sides of the chest -Chest CT in ED--> Bilateral pleural effusions with atelectasis on both sides of the lungs, metastatic nodules -Titrate O2 as needed to keep > 92% -Bilateral therapeutic thoracentesis indicated at this time Chachexia -Regular Diet -Consider Marinol, Steroids, or Remeron to help stimulate appetite Dilated left renal pelvis -Found on CT today -F/U with urology outpt; need retrograde study to further evaluate Chronic: Stage IV colon/prostate cancer Metastases to the liver and lungs Heart murmur secondary to rheumatic fever Plan: Transferred to Med-Surg today on telemetry He remains stable Other orders as indicated above Routine AM labs PT/OT DVT Prophylaxis--> DANE brandie Lovenox--> HOLD UNTIL BILATERAL THORACENTESIS DONE GI Prophylaxis--> Pepcid Ambulated as tolerated Code Status: DNR/DNI/Comfort Measures; PCP: Dr. Jerome Tatum Consult CM--> Need appt with urologist for dilated left renal pelvis found on CT today <Elio Alanis T - Last Filed: 03/09/18 18:41> H&P History of Present Illness - General Admit Problem/Dx: Admission Diagnosis/Problem Admission Diagnosis/Problem Hypoxia Exam - Vital Signs Vital Signs: Last Vital Signs Temp 36.9 C 03/09/18 16:38 Pulse 82 03/09/18 16:38 Resp 22 H 05/18/18 16:38 BP 128/85 03/09/18 16:38 Pulse Ox 98 03/09/18 16:38 - Patient Data Lab Results Last 24 hrs: Laboratory Results - last 24 hr 03/09/18 03/09/18 03/09/18 Range/Units 12:10 12:10 12:10 WBC 6.65 (4.23-9.07) K/mm3 RBC 3.66 L (4.63-6.08) M/mm3 Hgb 12.2 L (13.7-17.5) gm/L Hct 37.4 L (40.1-51.0) % MCV 102.2 H (79.0-92.2) fl MCH 33.3 H (25.7-32.2) pg MCHC 32.6 (32.2-35.5) g/dl RDW Std Deviation 61.4 H (35.1-43.9) fL Plt Count 195 (163-337) K/mm3 MPV 9.5 (9.4-12.3) fl Neutrophils % (Manual) 79 H (40-60) % Band Neutrophils % 0 (0-10) % Lymphocytes % (Manual) 17 L (20-40) % Atypical Lymphs % 0 % Monocytes % (Manual) 3 (2-10) % Eosinophils % (Manual) 1 (0.8-7.0) % Basophils % (Manual) 0 L (0.2-1.2) Platelet Estimate Adequate Anisocytosis Moderate Macrocytosis 1+ slight RBC Morph Comment Abnormal Sodium 137 (136-145) mEq/L Potassium 3.6 (3.5-5.1) mEq/L Chloride 102 (98-107) mEq/L Carbon Dioxide 27 (21-32) mEq/L Anion Gap 11.6 (5-15) BUN 21 H (7-18) mg/dL Creatinine 1.0 (0.7-1.3) mg/dL Est Cr Clr Drug Dosing 53.58 mL/min Estimated GFR (MDRD) > 60 (>60) mL/min BUN/Creatinine Ratio 21.0 H (14-18) Glucose 117 H (83-115) mg/dL Calcium 8.9 (8.5-10.1) mg/dL Magnesium 1.9 (1.8-2.4) mg/dl Total Bilirubin 1.2 H (0.2-1.0) mg/dL AST 72 H (15-37) U/L ALT 64 H (16-63) U/L Alkaline Phosphatase 560 H (46-116) U/L Troponin I < 0.017 (0.00-0.056) ng/mL C-Reactive Protein (<1.0) mg/dL NT-Pro-B Natriuret Pep 555 H (0-450) pg/mL Total Protein 7.3 (6.4-8.2) g/dl Albumin 2.2 L (3.4-5.0) g/dl Globulin 5.1 gm/dL Albumin/Globulin Ratio 0.4 L (1-2) TSH 3rd Generation 3.658 (0.358-3.74) uIU/mL Urine Color (Yellow) Urine Appearance (Clear) Urine pH (5.0-8.0) Ur Specific [place]man (1.005-1.030) Urine Protein (Negative) Urine Glucose (UA) (Negative) Urine Ketones (Negative) Urine Occult Blood (Negative) Urine Nitrite (Negative) Urine Bilirubin (Negative) Urine Urobilinogen (0.2-1.0) Ur Leukocyte Esterase (Negative) Urine RBC (0-5) /hpf Urine WBC (0-5) /hpf Ur Epithelial Cells (0-5) /hpf Urine Bacteria (FEW) /hpf Urine Mucus (FEW) /hpf 03/09/18 03/09/18 Range/Units 12:10 13:35 WBC (4.23-9.07) K/mm3 RBC (4.63-6.08) M/mm3 Hgb (13.7-17.5) gm/L Hct (40.1-51.0) % MCV (79.0-92.2) fl MCH (25.7-32.2) pg MCHC (32.2-35.5) g/dl RDW Std Deviation (35.1-43.9) fL Plt Count (163-337) K/mm3 MPV (9.4-12.3) fl Neutrophils % (Manual) (40-60) % Band Neutrophils % (0-10) % Lymphocytes % (Manual) (20-40) % Atypical Lymphs % % Monocytes % (Manual) (2-10) % Eosinophils % (Manual) (0.8-7.0) % Basophils % (Manual) (0.2-1.2) Platelet Estimate Anisocytosis Macrocytosis RBC Morph Comment Sodium (136-145) mEq/L Potassium (3.5-5.1) mEq/L Chloride (98-107) mEq/L Carbon Dioxide (21-32) mEq/L Anion Gap (5-15) BUN (7-18) mg/dL Creatinine (0.7-1.3) mg/dL Est Cr Clr Drug Dosing mL/min Estimated GFR (MDRD) (>60) mL/min BUN/Creatinine Ratio (14-18) Glucose (83-115) mg/dL Calcium (8.5-10.1) mg/dL Magnesium (1.8-2.4) mg/dl Total Bilirubin (0.2-1.0) mg/dL AST (15-37) U/L ALT (16-63) U/L Alkaline Phosphatase (46-116) U/L Troponin I (0.00-0.056) ng/mL C-Reactive Protein 5.3 H* (<1.0) mg/dL NT-Pro-B Natriuret Pep (0-450) pg/mL Total Protein (6.4-8.2) g/dl Albumin (3.4-5.0) g/dl Globulin gm/dL Albumin/Globulin Ratio (1-2) TSH 3rd Generation (0.358-3.74) uIU/mL Urine Color Light yellow (Yellow) Urine Appearance Clear (Clear) Urine pH 7.0 (5.0-8.0) Ur Specific Nordman 1.020 (1.005-1.030) Urine Protein Negative (Negative) Urine Glucose (UA) Negative (Negative) Urine Ketones Negative (Negative) Urine Occult Blood Negative (Negative) Urine Nitrite Negative (Negative) Urine Bilirubin Negative (Negative) Urine Urobilinogen 0.2 (0.2-1.0) Ur Leukocyte Esterase Negative (Negative) Urine RBC Not seen (0-5) /hpf Urine WBC Not seen (0-5) /hpf Ur Epithelial Cells 0-5 (0-5) /hpf Urine Bacteria Not seen (FEW) /hpf Urine Mucus Not seen (FEW) /hpf Result Diagrams: 03/09/18 12:10 03/09/18 12:10 Orders Last 24hrs: Active Orders 24 hr Category Date Time Status Admission Status [Patient Status] [ADT] Routine ADT 03/09/18 15:49 Active Ambulate [RC] ASDIRECTED Care 03/09/18 17:30 Active Cardiac Monitoring [RC] . DIRECTED Care 03/09/18 15:49 Active Height and Weight [RC] DAILY Care 03/09/18 17:30 Active Intake and Output [RC] QSHIFT Care 03/09/18 17:31 Active May Shower [RC] ASDIRECTED Care 03/09/18 17:30 Active Oxygen Therapy [RC] PRN Care 03/09/18 17:30 Active Oxygen Therapy [RC] PRN Care 03/09/18 17:30 Inactive Oxygen Therapy [RC] PRN Care 03/09/18 17:47 Active Pulse Oximetry [RC] PRN Care 03/09/18 17:31 Active RT Aerosol Therapy [RC] ASDIRECTED Care 03/09/18 17:34 Active Up With Assistance [RC] ASDIRECTED Care 03/09/18 17:30 Active Up to Chair [RC] ASDIRECTED Care 03/09/18 17:30 Active VTE/DVT Education [RC] PER UNIT ROUTINE Care 03/09/18 17:30 Active VTE/DVT Education [RC] PER UNIT ROUTINE Care 03/09/18 17:30 Inactive Vital Signs [RC] Q4H Care 03/09/18 17:30 Active Consult to Case Management [CONS] Routine Cons 03/09/18 17:30 Active Consult to Poultry Farm Laborer [CONS] Routine Cons 03/09/18 12:27 Active Consult to Spiritual Care [CONS] Routine Cons 03/09/18 17:30 Active OT Evaluation and Treatment [CONS] Routine Cons 03/09/18 17:30 Active PT Evaluation and Treatment [CONS] Routine Cons 03/09/18 17:30 Active Respiratory Care Assess and Treatment [CONS] Routine Cons 03/09/18 17:30 Active Regular Diet [DIET] Diet 03/10/18 Breakfast Active Chest 1V Frontal [CR] Routine Exams 03/09/18 17:33 Ordered BASIC METABOLIC PANEL,BMP [CHEM] AM Lab 03/10/18 05:11 Ordered BASIC METABOLIC PANEL,BMP [CHEM] AM Lab 03/11/18 05:11 Ordered BASIC METABOLIC PANEL,BMP [CHEM] AM Lab 03/12/18 05:11 Ordered C-REACTIVE PROTEIN [CHEM] AM Lab 03/10/18 05:11 Ordered C-REACTIVE PROTEIN [CHEM] AM Lab 03/11/18 05:11 Ordered C-REACTIVE PROTEIN [CHEM] AM Lab 03/12/18 05:11 Ordered CBC WITH AUTO DIFF [HEME] AM Lab 03/10/18 05:11 Ordered CBC WITH AUTO DIFF [HEME] AM Lab 03/11/18 05:11 Ordered CBC WITH AUTO DIFF [HEME] AM Lab 03/12/18 05:11 Ordered CULTURE BLOOD [BC] Stat Lab 03/09/18 12:54 Received CULTURE BLOOD [BC] Stat Lab 03/09/18 13:04 Received Acetaminophen [Tylenol] Med 03/09/18 17:30 Active 650 mg PO Q4H PRN Acetaminophen/oxyCODONE [Percocet 325-5 MG] Med 03/09/18 17:30 Active 1 tab PO Q4H PRN Albuterol [Proventil Neb Soln] Med 03/09/18 17:30 Active 2.5 mg NEB Q2H PRN Albuterol/Ipratropium [DuoNeb 3.0-0.5 MG/3 ML] Med 03/09/18 17:30 Active 3 ml NEB Q4H PRN Benzocaine/Cetylpyrd/Menthol [Cepacol Sore Throat] Med 03/09/18 18:37 Active 1 lozenge MUCMEM Q4HR PRN Bisacodyl [Dulcolax] Med 03/09/18 17:30 Active 5 mg PO DAILY PRN Docusate Sodium [Colace] Med 03/09/18 17:30 Active 100 mg PO BID PRN Docusate Sodium/Sennosides [Senna Plus] Med 03/09/18 17:30 Active 1 tab PO BID PRN Famotidine [Pepcid] Med 03/09/18 21:00 Active 20 mg PO BID Magnesium Hydroxide [Milk of Magnesia] Med 03/09/18 17:30 Active 30 ml PO Q12H PRN Morphine Med 03/09/18 17:47 Active 2 mg IVPUSH Q2H PRN Ondansetron [Zofran ODT] Med 03/09/18 17:30 Active 4 mg PO Q4H PRN Ondansetron [Zofran] Med 03/09/18 17:30 Active 4 mg IV Q4H PRN Polyethylene Glycol 3350 [MiraLAX] Med 03/09/18 17:30 Active 17 gm PO DAILY PRN Sodium Chloride 0.9% [Normal Saline] 250 ml Med 03/09/18 14:15 Active IV ASDIRECTED Sodium Chloride 0.9% [Saline Flush] Med 03/09/18 11:33 Active 10 ml FLUSH ASDIRECTED PRN Sodium Chloride 0.9% [Saline Flush] Med 03/09/18 13:56 Active 10 ml FLUSH ONETIME PRN Sodium Chloride 0.9% [Saline Flush] Med 03/09/18 14:11 Active 10 ml FLUSH ONETIME PRN Temazepam [Restoril] Med 03/09/18 17:30 Active 7.5 mg PO BEDTIME PRN Antiembolic Hose [OM.PC] Per Unit Routine Oth 03/09/18 17:32 Ordered Blood Culture x2 Reflex Set [OM.PC] Stat Oth 03/09/18 12:26 Ordered Peripheral IV Insertion Adult [OM.PC] Routine Oth 03/09/18 11:33 Ordered Resuscitation Status Routine Resus Stat 03/09/18 17:29 Ordered Medication Orders Acetaminophen (Tylenol) 650 mg PO Q4H PRN PRN Reason: Pain (Mild 1-3)/fever Albuterol (Proventil Neb Soln) 2.5 mg NEB Q2H PRN PRN Reason: Shortness Of Breath/wheezing Albuterol/Ipratropium (Duoneb 3.0-0.5 Mg/3 Ml) 3 ml NEB Q4H PRN PRN Reason: Shortness Of Breath/wheezing Benzocaine/Menthol (Cepacol Sore Throat) 1 lozenge MUCMEM Q4HR PRN PRN Reason: Cough Bisacodyl (Dulcolax) 5 mg PO DAILY PRN PRN Reason: Constipation Docusate Sodium (Colace) 100 mg PO BID PRN PRN Reason: Constipation Famotidine (Pepcid) 20 mg PO BID DIANNA Sodium Chloride (Normal Saline) 250 mls @ 80 mls/hr IV ASDIRECTED DIANNA Last Admin: 03/09/18 14:13 Dose: 80 mls/hr Magnesium Hydroxide (Milk Of Magnesia) 30 ml PO Q12H PRN PRN Reason: Constipation Morphine Sulfate (Morphine) 2 mg IVPUSH Q2H PRN PRN Reason: Pain (severe 7-10) Stop: 03/10/18 17:47 Ondansetron HCl (Zofran Odt) 4 mg PO Q4H PRN PRN Reason: nausea, able to take PO Ondansetron HCl (Zofran) 4 mg IV Q4H PRN PRN Reason: Nausea/Vomiting Oxycodone/Acetaminophen (Percocet 325-5 Mg) 1 tab PO Q4H PRN PRN Reason: Pain (moderate 4-6) Polyethylene Glycol (Miralax) 17 gm PO DAILY PRN PRN Reason: Constipation Senna/Docusate Sodium (Senna Plus) 1 tab PO BID PRN PRN Reason: Constipation Sodium Chloride (Saline Flush) 10 ml FLUSH ASDIRECTED PRN PRN Reason: Keep Vein Open Last Admin: 03/09/18 12:13 Dose: 10 ml Sodium Chloride (Saline Flush) 10 ml FLUSH ONETIME PRN PRN Reason: IV FLUSH Sodium Chloride (Saline Flush) 10 ml FLUSH ONETIME PRN PRN Reason: IV FLUSH Last Admin: 03/09/18 14:13 Dose: 10 ml Temazepam (Restoril) 7.5 mg PO BEDTIME PRN PRN Reason: Sleep
[2018-03-09] MEDS ORDERED: Docusate Sodium 100 MG Cap PO PRN (17:30)
[2018-03-09] MEDS ORDERED: Albuterol/Ipratropium 3.0-0.5 MG/3 ML Neb Soln NEB PRN (17:30)
[2018-03-09] MEDS ORDERED: Albuterol 0.083% 2.5 MG/3 ML Neb Soln NEB PRN (17:30)
[2018-03-09] MEDS ORDERED: Polyethylene Glycol 3350 Powder 17 GM Packet PO PRN (17:30)
[2018-03-09] MEDS ORDERED: Acetaminophen 325 MG Tab PO PRN (17:30)
[2018-03-09] MEDS ORDERED: HYDROmorphone 0.5 MG/0.5 ML SYRINGE IVPUSH PRN (17:30)
[2018-03-09] MEDS ORDERED: Temazepam 7.5 MG Cap PO PRN (17:30)
[2018-03-09] MEDS ORDERED: Ondansetron 4 MG/2 ML SDV IV PRN (17:30)
[2018-03-09] MEDS ORDERED: Magnesium Hydroxide 400 MG/5 ML Susp 30 ML Cup PO PRN (17:30)
[2018-03-09] MEDS ORDERED: Ondansetron 4 MG Tab.DIS PO PRN (17:30)
[2018-03-09] MEDS ORDERED: Bisacodyl 5 MG Tab PO PRN (17:30)
[2018-03-09] MEDS ORDERED: Acetaminophen/oxyCODONE 325-5 MG Tab PO PRN (17:30)
[2018-03-09] MEDS ORDERED: Morphine 2 MG/ML Syringe IVPUSH PRN (17:47)
[2018-03-09] MEDS ORDERED: Morphine 2 MG/ML Syringe IVPUSH ONE (17:48)
--- NOTE | 2018-03-09 18:39 | PCM.PRNOTE ---
- Free Text/Narrative Note: DATE OF PROCEDURE: 03/09/2018 PREOPERATIVE DIAGNOSIS: Bilateral Pleural Effusion POSTOPERATIVE DIAGNOSIS: Right Sided Pleural Effusion PROCEDURE PERFORMED: U/S Guided Therapeutic Right Sided Thoracentesis SURGEON: Odalis Zee PA-C SHADOWGRAPH OPERATOR: Elio Alanis DO DESCRIPTION OF PROCEDURE: After informed consent was obtained, signed, the patient had ultrasound localization in the right hemithorax. The patient was sterilely prepped and topical lidocaine was induced. Stab incision was made and a thoracentesis catheter was inserted and 1450 mL of clear kristen colored fluid was obtained without difficulty. Estimated Blood Loss: Minimal The patient tolerated the procedure well w/o any complications. Post procedure chest x-ray is pending.
--- NOTE | 2018-03-09 19:00 | CR ---
Chest: Portable view of the chest is obtained in expiration. Comparison: Prior chest x-ray performed earlier on the same day (11:35 AM) and chest CT of 03/09/18 (2:23 PM). Left-sided pleural effusion is seen. Decreased right sided pleural effusion is seen from prior chest CT. No pneumothorax is appreciated. Diffuse nodular densities are seen throughout the chest. Heart size and mediastinum are within normals. Right sided infusion catheter is seen. Bony structures are unchanged.. Impression: 1. Decreased right-sided pleural effusion. No pneumothorax is seen. 2. Continuing left-sided pleural effusion with multiple nodular densities within the chest. Diagnostic code #3
[2018-03-09] MEDS ORDERED: LORazepam 2 MG/ML SDV IVPUSH PRN (20:11)
[2018-03-09] MEDS ORDERED: hydrALAZINE 20 MG/ML SDV IVPUSH PRN (20:11)
[2018-03-09] MEDS ORDERED: Metoprolol Tartrate 5 MG/5 ML SDV IVPUSH PRN (20:11)
[2018-03-09] MEDS ORDERED: Magnesium Oxide 400 MG Tab PO ONE (20:30)
[2018-03-09] MEDS: Benzocaine/Cetylpyridinium/Menthol Lozenge MUCMEM PRN (20:40)
[2018-03-09] MEDS: Potassium Chloride 20 MEQ Tab.ER PO SCH (20:54)
[2018-03-09] MEDS: Mirtazapine 30 MG Tab PO SCH (20:57)
[2018-03-09] MEDS ORDERED: Famotidine 20 MG Tab PO SCH (21:00)
[2018-03-09] MEDS: Morphine 2 MG/ML Syringe IVPUSH PRN (22:49)
[2018-03-10] MEDS: Potassium Chloride 20 MEQ Tab.ER PO SCH (00:11)
[2018-03-10] MEDS ORDERED: Furosemide 100 MG in Sodium Chloride 0.9% 90 ML IV SCH ×2 (01:00→07:00)
[2018-03-10] MEDS: Morphine 2 MG/ML Syringe IVPUSH PRN ×2 (06:35→09:52)
--- NOTE | 2018-03-10 07:40 | PCM.PN ---
- General Info Date of Service: 03/10/18 Admission Dx/Problem (Free Text): Admission Diagnosis/Problem Admission Diagnosis/Problem Hypoxia Functional Status: Reports: Pain Controlled, Tolerating Diet, Ambulating, Urinating. Denies: New Symptoms - Review of Systems General: Denies: Fever, Weakness, Fatigue, Malaise, Chills Cardiovascular: Reports: Chest Pain. Denies: Palpitations, Dyspnea on Exertion , Edema, Lightheadedness Gastrointestinal: Reports: Abdominal Pain. Denies: Nausea, Vomiting Genitourinary: Reports: Frequency Musculoskeletal: Reports: No Symptoms, Shoulder Pain Skin: Denies: Mottled, Pallor, Diaphoresis, Bruising, Rash Neurological: Reports: Weakness. Denies: Difficulty Walking, Gait Disturbance Psychiatric: Denies: Depression, Anxiety, Agitation, Hallucinations Systems Review Comment:: He did not sleep well last. He could not get comfortable. He did not ask for sleeping pill. His labs and vitals are stable. His appetite is still poor. - Patient Data Vitals - Most Recent: Last Vital Signs Temp 37.4 C 03/10/18 03:53 Pulse 89 03/10/18 03:53 Resp 20 03/10/18 03:53 BP 116/74 03/10/18 03:53 Pulse Ox 96 03/10/18 03:53 Weight - Most Recent: 61.235 kg I&O - Last 24 Hours: Intake & Output 03/09/18 03/10/18 03/10/18 22:59 06:59 14:59 Intake Total 50 66 Output Total 1650 500 Balance -1600 -434 Lab Results Last 24 Hours: Laboratory Results - last 24 hr 03/09/18 03/09/18 03/09/18 Range/Units 12:10 12:10 12:10 WBC 6.65 (4.23-9.07) K/mm3 RBC 3.66 L (4.63-6.08) M/mm3 Hgb 12.2 L (13.7-17.5) gm/L Hct 37.4 L (40.1-51.0) % MCV 102.2 H (79.0-92.2) fl MCH 33.3 H (25.7-32.2) pg MCHC 32.6 (32.2-35.5) g/dl RDW Std Deviation 61.4 H (35.1-43.9) fL Plt Count 195 (163-337) K/mm3 MPV 9.5 (9.4-12.3) fl Neut % (Auto) (34.0-67.9) % Lymph % (Auto) (21.8-53.1) % [place] % (Auto) (5.3-12.2) % Eos % (Auto) (0.8-7.0) Baso % (Auto) (0.1-1.2) % Neut # (Auto) (1.78-5.38) K/mm3 Lymph # (Auto) (1.32-3.57) K/mm3 [place] # (Auto) (0.30-0.82) K/mm3 Eos # (Auto) (0.04-0.54) K/mm3 Baso # (Auto) (0.01-0.08) K/mm3 Neutrophils % (Manual) 79 H (40-60) % Band Neutrophils % 0 (0-10) % Lymphocytes % (Manual) 17 L (20-40) % Atypical Lymphs % 0 % Monocytes % (Manual) 3 (2-10) % Eosinophils % (Manual) 1 (0.8-7.0) % Basophils % (Manual) 0 L (0.2-1.2) Manual Slide Review Platelet Estimate Adequate Anisocytosis Moderate Macrocytosis 1+ slight RBC Morph Comment Abnormal Sodium 137 (136-145) mEq/L Potassium 3.6 (3.5-5.1) mEq/L Chloride 102 (98-107) mEq/L Carbon Dioxide 27 (21-32) mEq/L Anion Gap 11.6 (5-15) BUN 21 H (7-18) mg/dL Creatinine 1.0 (0.7-1.3) mg/dL Est Cr Clr Drug Dosing 53.58 mL/min Estimated GFR (MDRD) > 60 (>60) mL/min BUN/Creatinine Ratio 21.0 H (14-18) Glucose 117 H (83-115) mg/dL Calcium 8.9 (8.5-10.1) mg/dL Magnesium 1.9 (1.8-2.4) mg/dl Total Bilirubin 1.2 H (0.2-1.0) mg/dL AST 72 H (15-37) U/L ALT 64 H (16-63) U/L Alkaline Phosphatase 560 H (46-116) U/L Troponin I < 0.017 (0.00-0.056) ng/mL C-Reactive Protein (<1.0) mg/dL NT-Pro-B Natriuret Pep 555 H (0-450) pg/mL Total Protein 7.3 (6.4-8.2) g/dl Albumin 2.2 L (3.4-5.0) g/dl Globulin 5.1 gm/dL Albumin/Globulin Ratio 0.4 L (1-2) TSH 3rd Generation 3.658 (0.358-3.74) uIU/mL Urine Color (Yellow) Urine Appearance (Clear) Urine pH (5.0-8.0) Ur Specific [place] (1.005-1.030) Urine Protein (Negative) Urine Glucose (UA) (Negative) Urine Ketones (Negative) Urine Occult Blood (Negative) Urine Nitrite (Negative) Urine Bilirubin (Negative) Urine Urobilinogen (0.2-1.0) Ur Leukocyte Esterase (Negative) Urine RBC (0-5) /hpf Urine WBC (0-5) /hpf Ur Epithelial Cells (0-5) /hpf Urine Bacteria (FEW) /hpf Urine Mucus (FEW) /hpf 03/09/18 03/09/18 03/10/18 Range/Units 12:10 13:35 05:51 WBC 8.19 (4.23-9.07) K/mm3 RBC 3.92 L (4.63-6.08) M/mm3 Hgb 12.9 L (13.7-17.5) gm/L Hct 40.3 (40.1-51.0) % MCV 102.8 H (79.0-92.2) fl MCH 32.9 H (25.7-32.2) pg MCHC 32.0 L (32.2-35.5) g/dl RDW Std Deviation 63.0 H (35.1-43.9) fL Plt Count 205 (163-337) K/mm3 MPV 9.6 (9.4-12.3) fl Neut % (Auto) 82.4 H (34.0-67.9) % Lymph % (Auto) 7.2 L (21.8-53.1) % [place] % (Auto) 9.6 (5.3-12.2) % Eos % (Auto) 0.5 L (0.8-7.0) Baso % (Auto) 0.1 (0.1-1.2) % Neut # (Auto) 6.74 H (1.78-5.38) K/mm3 Lymph # (Auto) 0.59 L (1.32-3.57) K/mm3 [place] # (Auto) 0.79 (0.30-0.82) K/mm3 Eos # (Auto) 0.04 (0.04-0.54) K/mm3 Baso # (Auto) 0.01 (0.01-0.08) K/mm3 Neutrophils % (Manual) (40-60) % Band Neutrophils % (0-10) % Lymphocytes % (Manual) (20-40) % Atypical Lymphs % % Monocytes % (Manual) (2-10) % Eosinophils % (Manual) (0.8-7.0) % Basophils % (Manual) (0.2-1.2) Manual Slide Review Abnormal smear Platelet Estimate Anisocytosis Macrocytosis RBC Morph Comment Sodium (136-145) mEq/L Potassium (3.5-5.1) mEq/L Chloride (98-107) mEq/L Carbon Dioxide (21-32) mEq/L Anion Gap (5-15) BUN (7-18) mg/dL Creatinine (0.7-1.3) mg/dL Est Cr Clr Drug Dosing mL/min Estimated GFR (MDRD) (>60) mL/min BUN/Creatinine Ratio (14-18) Glucose (83-115) mg/dL Calcium (8.5-10.1) mg/dL Magnesium (1.8-2.4) mg/dl Total Bilirubin (0.2-1.0) mg/dL AST (15-37) U/L ALT (16-63) U/L Alkaline Phosphatase (46-116) U/L Troponin I (0.00-0.056) ng/mL C-Reactive Protein 5.3 H* (<1.0) mg/dL NT-Pro-B Natriuret Pep (0-450) pg/mL Total Protein (6.4-8.2) g/dl Albumin (3.4-5.0) g/dl Globulin gm/dL Albumin/Globulin Ratio (1-2) TSH 3rd Generation (0.358-3.74) uIU/mL Urine Color Light yellow (Yellow) Urine Appearance Clear (Clear) Urine pH 7.0 (5.0-8.0) Ur Specific [place] 1.020 (1.005-1.030) Urine Protein Negative (Negative) Urine Glucose (UA) Negative (Negative) Urine Ketones Negative (Negative) Urine Occult Blood Negative (Negative) Urine Nitrite Negative (Negative) Urine Bilirubin Negative (Negative) Urine Urobilinogen 0.2 (0.2-1.0) Ur Leukocyte Esterase Negative (Negative) Urine RBC Not seen (0-5) /hpf Urine WBC Not seen (0-5) /hpf Ur Epithelial Cells 0-5 (0-5) /hpf Urine Bacteria Not seen (FEW) /hpf Urine Mucus Not seen (FEW) /hpf 03/10/18 Range/Units 05:51 WBC (4.23-9.07) K/mm3 RBC (4.63-6.08) M/mm3 Hgb (13.7-17.5) gm/L Hct (40.1-51.0) % MCV (79.0-92.2) fl MCH (25.7-32.2) pg MCHC (32.2-35.5) g/dl RDW Std Deviation (35.1-43.9) fL Plt Count (163-337) K/mm3 MPV (9.4-12.3) fl Neut % (Auto) (34.0-67.9) % Lymph % (Auto) (21.8-53.1) % [place] % (Auto) (5.3-12.2) % Eos % (Auto) (0.8-7.0) Baso % (Auto) (0.1-1.2) % Neut # (Auto) (1.78-5.38) K/mm3 Lymph # (Auto) (1.32-3.57) K/mm3 [place] # (Auto) (0.30-0.82) K/mm3 Eos # (Auto) (0.04-0.54) K/mm3 Baso # (Auto) (0.01-0.08) K/mm3 Neutrophils % (Manual) (40-60) % Band Neutrophils % (0-10) % Lymphocytes % (Manual) (20-40) % Atypical Lymphs % % Monocytes % (Manual) (2-10) % Eosinophils % (Manual) (0.8-7.0) % Basophils % (Manual) (0.2-1.2) Manual Slide Review Platelet Estimate Anisocytosis Macrocytosis RBC Morph Comment Sodium 139 (136-145) mEq/L Potassium 4.1 (3.5-5.1) mEq/L Chloride 103 (98-107) mEq/L Carbon Dioxide 29 (21-32) mEq/L Anion Gap 11.1 (5-15) BUN 21 H (7-18) mg/dL Creatinine 1.2 (0.7-1.3) mg/dL Est Cr Clr Drug Dosing 44.65 mL/min Estimated GFR (MDRD) 59 (>60) mL/min BUN/Creatinine Ratio 17.5 (14-18) Glucose 94 (83-115) mg/dL Calcium 8.6 (8.5-10.1) mg/dL Magnesium (1.8-2.4) mg/dl Total Bilirubin (0.2-1.0) mg/dL AST (15-37) U/L ALT (16-63) U/L Alkaline Phosphatase (46-116) U/L Troponin I (0.00-0.056) ng/mL C-Reactive Protein 5.5 H* (<1.0) mg/dL NT-Pro-B Natriuret Pep (0-450) pg/mL Total Protein (6.4-8.2) g/dl Albumin (3.4-5.0) g/dl Globulin gm/dL Albumin/Globulin Ratio (1-2) TSH 3rd Generation (0.358-3.74) uIU/mL Urine Color (Yellow) Urine Appearance (Clear) Urine pH (5.0-8.0) Ur Specific [place] (1.005-1.030) Urine Protein (Negative) Urine Glucose (UA) (Negative) Urine Ketones (Negative) Urine Occult Blood (Negative) Urine Nitrite (Negative) Urine Bilirubin (Negative) Urine Urobilinogen (0.2-1.0) Ur Leukocyte Esterase (Negative) Urine RBC (0-5) /hpf Urine WBC (0-5) /hpf Ur Epithelial Cells (0-5) /hpf Urine Bacteria (FEW) /hpf Urine Mucus (FEW) /hpf Med Orders - Current: Current Medications Acetaminophen (Tylenol) 650 mg PO Q4H PRN PRN Reason: Pain (Mild 1-3)/fever Albuterol (Proventil Neb Soln) 2.5 mg NEB Q2H PRN PRN Reason: Shortness Of Breath/wheezing Albuterol/Ipratropium (Duoneb 3.0-0.5 Mg/3 Ml) 3 ml NEB Q4H PRN PRN Reason: Shortness Of Breath/wheezing Benzocaine/Menthol (Cepacol Sore Throat) 1 lozenge MUCMEM Q4HR PRN PRN Reason: Cough Last Admin: 03/09/18 20:40 Dose: 1 lozenge Bisacodyl (Dulcolax) 5 mg PO DAILY PRN PRN Reason: Constipation Docusate Sodium (Colace) 100 mg PO BID PRN PRN Reason: Constipation Dronabinol (Marinol) 2.5 mg PO TIDAC DIANNA Enoxaparin Sodium (Lovenox) 30 mg SUBCUT Q24H DIANNA Famotidine (Pepcid) 20 mg PO BID [facility] Last Admin: 03/09/18 20:58 Dose: 20 mg Hydralazine HCl (Apresoline) 20 mg IVPUSH Q4H PRN PRN Reason: Hypertension Last Admin: 03/09/18 22:25 Dose: 20 mg Sodium Chloride (Normal Saline) 250 mls @ 80 mls/hr IV ASDIRECTED DIANNA Last Admin: 03/09/18 14:13 Dose: 80 mls/hr Furosemide 100 mg/ Sodium (Chloride) 100 mls @ 3 mls/hr IV TITRATE DIANNA; Protocol Last Admin: 03/10/18 01:19 Dose: 3 mls/hr Lorazepam (Ativan) 2 mg IVPUSH Q4H PRN PRN Reason: Seizures Magnesium Hydroxide (Milk Of Magnesia) 30 ml PO Q12H PRN PRN Reason: Constipation Magnesium Sulfate (Pharmacy To Dose - Magnesium Replacement) 1 dose .XX ASDIRECTED [facility] Metoprolol Tartrate (Lopressor) 5 mg IVPUSH Q4H PRN PRN Reason: Tachycardia Last Admin: 03/10/18 00:04 Dose: 5 mg Mirtazapine (Remeron) 30 mg PO BEDTIME DIANNA Last Admin: 03/09/18 20:57 Dose: 30 mg Morphine Sulfate (Morphine) 1 mg IVPUSH Q4H PRN PRN Reason: Pain (severe 7-10) Stop: 03/13/18 17:47 Last Admin: 03/10/18 06:35 Dose: 1 mg Ondansetron HCl (Zofran Odt) 4 mg PO Q4H PRN PRN Reason: nausea, able to take PO Ondansetron HCl (Zofran) 4 mg IV Q4H PRN PRN Reason: Nausea/Vomiting Oxycodone/Acetaminophen (Percocet 325-5 Mg) 1 tab PO Q4H PRN PRN Reason: Pain (moderate 4-6) Polyethylene Glycol (Miralax) 17 gm PO DAILY PRN PRN Reason: Constipation Potassium Chloride (Pharmacy To Dose - Potassium Replacement) 1 dose .XX ASDIRECTED DIANNA Senna/Docusate Sodium (Senna Plus) 1 tab PO BID PRN PRN Reason: Constipation Sodium Chloride (Saline Flush) 10 ml FLUSH ASDIRECTED PRN PRN Reason: Keep Vein Open Last Admin: 03/09/18 12:13 Dose: 10 ml Sodium Chloride (Saline Flush) 10 ml FLUSH ONETIME PRN PRN Reason: IV FLUSH Sodium Chloride (Saline Flush) 10 ml FLUSH ONETIME PRN PRN Reason: IV FLUSH Last Admin: 03/09/18 14:13 Dose: 10 ml Temazepam (Restoril) 7.5 mg PO BEDTIME PRN PRN Reason: Sleep Discontinued Medications Furosemide (Lasix) 40 mg IVPUSH NOW ONE Stop: 03/09/18 11:33 Last Admin: 03/09/18 12:13 Dose: 40 mg Hydromorphone HCl (Dilaudid) 0.5 mg IVPUSH Q2H PRN PRN Reason: Pain (severe 7-10) Furosemide 100 mg/ Sodium (Chloride) 100 mls @ 3 mls/hr IV TITRATE DIANNA; Protocol Iopamidol (Isovue-300 (61%)) 100 ml IVPUSH ONETIME ONE Stop: 03/09/18 13:57 Iopamidol (Isovue-370 (76%)) 100 ml IVPUSH ONETIME ONE Stop: 03/09/18 14:12 Last Admin: 03/09/18 14:13 Dose: 100 ml Magnesium Oxide (Magnesium Oxide) 400 mg PO ONETIME ONE Stop: 03/09/18 20:31 Last Admin: 03/09/18 20:57 Dose: 400 mg Morphine Sulfate (Morphine) 2 mg IVPUSH Q2H PRN PRN Reason: Pain (severe 7-10) Stop: 03/10/18 17:47 Morphine Sulfate (Morphine) 1 mg IVPUSH ONETIME ONE Stop: 03/09/18 17:49 Last Admin: 03/09/18 18:13 Dose: 1 mg Potassium Chloride (Klor-Con M20) 40 meq PO Q4H DIANNA Stop: 03/10/18 01:01 Last Admin: 03/10/18 00:11 Dose: 40 meq - Exam Quality Assessment: Supplemental Oxygen General: Alert, Oriented, Cooperative, No Acute Distress HEENT: Pupils Equal, Pupils Reactive, EOMI, Mucous Membr. Moist/[place] Neck: Supple, Trachea Midline, No JVD Lungs: Normal Respiratory Effort, Decreased Breath Sounds, Crackles Cardiovascular: Regular Rate, Regular Rhythm GI/Abdominal Exam: Normal Bowel Sounds, Soft, Non-Tender, No Organomegaly, No Distention, No Abnormal Bruit, No Mass (Male) Exam: Deferred Back Exam: Normal Inspection, Decreased Range of Motion Extremities: Normal Inspection, Normal Range of Motion, Non-Tender, Pedal Edema , Other (Peripheral edema improved) Peripheral Pulses: 1+: Dorsalis Pedis (L), Dorsalis Pedis (R) Skin: Warm, Dry, Intact. No: Rash, Ecchymosis Neurological: No New Focal Deficit Psy/Mental Status: Alert, Normal Affect, Depressed. No: Suicidal Ideation - Problem List Review Problem List Initiated/Reviewed/Updated: Yes - My Orders Last 24 Hours: My Active Orders 03/09/18 18:37 Benzocaine/Cetylpyrd/Menthol [Cepacol Sore Throat] 1 lozenge MUCMEM Q4HR PRN 03/09/18 19:00 Incentive Spirometry [RT Incentive Spirometry] [RC] ASDIRECTED 03/09/18 20:11 LORazepam [Ativan] 2 mg IVPUSH Q4H PRN Metoprolol Tartrate [Lopressor] 5 mg IVPUSH Q4H PRN hydrALAZINE [Apresoline] 20 mg IVPUSH Q4H PRN 03/09/18 20:12 Morphine 1 mg IVPUSH Q4H PRN 03/09/18 20:15 Magnesium Rep Pharmacy to Dose [Pharmacy to Dose - Magnesium Replacement] 1 dose .XX ASDIRECTED Potassium Rep Pharmacy to Dose [Pharmacy to Dose - Potassium Replacement] 1 dose .XX ASDIRECTED 03/09/18 21:00 Mirtazapine [Remeron] 30 mg PO BEDTIME 03/10/18 01:00 Furosemide [Lasix] 100 mg Sodium Chloride 0.9% [Normal Saline] 90 ml IV TITRATE 03/10/18 07:00 Dronabinol [Marinol] 2.5 mg PO TIDAC 03/10/18 09:00 Enoxaparin [Lovenox] 30 mg SUBCUT Q24H - Plan Plan:: I/P: Acute: End of Life Care -Comfort Care -Symptomatic treatment Malignant Pleural Effusion, Improved S/p Bilateral Thoracentesis -Risk factor: 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 -SOB with exertion, orthopnea, PND, bilateral leg edema -O2 84% on room air--> 98% on 2L nasal cannula -Lasix IV 40 mg given in ED; now lasix drip to remove anasarca -BNP 555, CRP 5.3--> 5.5 -CXR in ED--> metastatic disease with small pleural effusions within both sides of the chest -Chest CT in ED--> Bilateral pleural effusions with atelectasis on both sides of the lungs, metastatic nodules -Titrate O2 as needed to keep > 92% -Bilateral therapeutic thoracentesis indicated at this time Chachexia -2/2 Malignancy -He has poor appetite -Regular Diet -Consider Marinol, Steroids, or Remeron to help stimulate appetite Dilated Left Renal Pelvis -Found on CT today -F/U with urology outpt; need retrograde study to further evaluate Chronic: Stage IV colon/prostate cancer Metastases to the liver and lungs Heart murmur secondary to rheumatic fever Plan: He is clinically stable Other orders as indicated above Routine AM labs Continue PT/OT DVT Prophylaxis: DANE hose and Lovenox after thoracentesis today GI Prophylaxis: H2B Ambulate as tolerated Encouraged to ask for sleeping pill at bedtime Code Status: DNR/DNI/Comfort Measures; PCP: Dr. Jerome Tatum Consult CM--> Need appt with urologist for dilated left renal pelvis found on CT today Poor overall prognosis. Recommend Hospice/Palliative Care on Discharge.
--- NOTE | 2018-03-10 07:46 | PCM.PN ---
- General Info Date of Service: 03/10/18 Admission Dx/Problem (Free Text): Admission Diagnosis/Problem Admission Diagnosis/Problem Hypoxia Subjective Update: Follow up Functional Status: Reports: Pain Controlled, Tolerating Diet, Ambulating, Urinating. Denies: New Symptoms - Patient Data Vitals - Most Recent: Last Vital Signs Temp 37.4 C 03/10/18 03:53 Pulse 89 03/10/18 03:53 Resp 20 03/10/18 03:53 BP 116/74 03/10/18 03:53 Pulse Ox 96 03/10/18 03:53 Weight - Most Recent: 61.235 kg I&O - Last 24 Hours: Intake & Output 03/09/18 03/10/18 03/10/18 22:59 06:59 14:59 Intake Total 50 66 Output Total 1650 500 Balance -1600 -434 Lab Results Last 24 Hours: Laboratory Results - last 24 hr 03/09/18 03/09/18 03/09/18 Range/Units 12:10 12:10 12:10 WBC 6.65 (4.23-9.07) K/mm3 RBC 3.66 L (4.63-6.08) M/mm3 Hgb 12.2 L (13.7-17.5) gm/L Hct 37.4 L (40.1-51.0) % MCV 102.2 H (79.0-92.2) fl MCH 33.3 H (25.7-32.2) pg MCHC 32.6 (32.2-35.5) g/dl RDW Std Deviation 61.4 H (35.1-43.9) fL Plt Count 195 (163-337) K/mm3 MPV 9.5 (9.4-12.3) fl Neut % (Auto) (34.0-67.9) % Lymph % (Auto) (21.8-53.1) % [place] % (Auto) (5.3-12.2) % Eos % (Auto) (0.8-7.0) Baso % (Auto) (0.1-1.2) % Neut # (Auto) (1.78-5.38) K/mm3 Lymph # (Auto) (1.32-3.57) K/mm3 [place] # (Auto) (0.30-0.82) K/mm3 Eos # (Auto) (0.04-0.54) K/mm3 Baso # (Auto) (0.01-0.08) K/mm3 Neutrophils % (Manual) 79 H (40-60) % Band Neutrophils % 0 (0-10) % Lymphocytes % (Manual) 17 L (20-40) % Atypical Lymphs % 0 % Monocytes % (Manual) 3 (2-10) % Eosinophils % (Manual) 1 (0.8-7.0) % Basophils % (Manual) 0 L (0.2-1.2) Manual Slide Review Platelet Estimate Adequate Anisocytosis Moderate Macrocytosis 1+ slight RBC Morph Comment Abnormal Sodium 137 (136-145) mEq/L Potassium 3.6 (3.5-5.1) mEq/L Chloride 102 (98-107) mEq/L Carbon Dioxide 27 (21-32) mEq/L Anion Gap 11.6 (5-15) BUN 21 H (7-18) mg/dL Creatinine 1.0 (0.7-1.3) mg/dL Est Cr Clr Drug Dosing 53.58 mL/min Estimated GFR (MDRD) > 60 (>60) mL/min BUN/Creatinine Ratio 21.0 H (14-18) Glucose 117 H (83-115) mg/dL Calcium 8.9 (8.5-10.1) mg/dL Magnesium 1.9 (1.8-2.4) mg/dl Total Bilirubin 1.2 H (0.2-1.0) mg/dL AST 72 H (15-37) U/L ALT 64 H (16-63) U/L Alkaline Phosphatase 560 H (46-116) U/L Troponin I < 0.017 (0.00-0.056) ng/mL C-Reactive Protein (<1.0) mg/dL NT-Pro-B Natriuret Pep 555 H (0-450) pg/mL Total Protein 7.3 (6.4-8.2) g/dl Albumin 2.2 L (3.4-5.0) g/dl Globulin 5.1 gm/dL Albumin/Globulin Ratio 0.4 L (1-2) TSH 3rd Generation 3.658 (0.358-3.74) uIU/mL Urine Color (Yellow) Urine Appearance (Clear) Urine pH (5.0-8.0) Ur Specific [place] (1.005-1.030) Urine Protein (Negative) Urine Glucose (UA) (Negative) Urine Ketones (Negative) Urine Occult Blood (Negative) Urine Nitrite (Negative) Urine Bilirubin (Negative) Urine Urobilinogen (0.2-1.0) Ur Leukocyte Esterase (Negative) Urine RBC (0-5) /hpf Urine WBC (0-5) /hpf Ur Epithelial Cells (0-5) /hpf Urine Bacteria (FEW) /hpf Urine Mucus (FEW) /hpf 03/09/18 03/09/18 03/10/18 Range/Units 12:10 13:35 05:51 WBC 8.19 (4.23-9.07) K/mm3 RBC 3.92 L (4.63-6.08) M/mm3 Hgb 12.9 L (13.7-17.5) gm/L Hct 40.3 (40.1-51.0) % MCV 102.8 H (79.0-92.2) fl MCH 32.9 H (25.7-32.2) pg MCHC 32.0 L (32.2-35.5) g/dl RDW Std Deviation 63.0 H (35.1-43.9) fL Plt Count 205 (163-337) K/mm3 MPV 9.6 (9.4-12.3) fl Neut % (Auto) 82.4 H (34.0-67.9) % Lymph % (Auto) 7.2 L (21.8-53.1) % [place] % (Auto) 9.6 (5.3-12.2) % Eos % (Auto) 0.5 L (0.8-7.0) Baso % (Auto) 0.1 (0.1-1.2) % Neut # (Auto) 6.74 H (1.78-5.38) K/mm3 Lymph # (Auto) 0.59 L (1.32-3.57) K/mm3 [place] # (Auto) 0.79 (0.30-0.82) K/mm3 Eos # (Auto) 0.04 (0.04-0.54) K/mm3 Baso # (Auto) 0.01 (0.01-0.08) K/mm3 Neutrophils % (Manual) (40-60) % Band Neutrophils % (0-10) % Lymphocytes % (Manual) (20-40) % Atypical Lymphs % % Monocytes % (Manual) (2-10) % Eosinophils % (Manual) (0.8-7.0) % Basophils % (Manual) (0.2-1.2) Manual Slide Review Abnormal smear Platelet Estimate Anisocytosis Macrocytosis RBC Morph Comment Sodium (136-145) mEq/L Potassium (3.5-5.1) mEq/L Chloride (98-107) mEq/L Carbon Dioxide (21-32) mEq/L Anion Gap (5-15) BUN (7-18) mg/dL Creatinine (0.7-1.3) mg/dL Est Cr Clr Drug Dosing mL/min Estimated GFR (MDRD) (>60) mL/min BUN/Creatinine Ratio (14-18) Glucose (83-115) mg/dL Calcium (8.5-10.1) mg/dL Magnesium (1.8-2.4) mg/dl Total Bilirubin (0.2-1.0) mg/dL AST (15-37) U/L ALT (16-63) U/L Alkaline Phosphatase (46-116) U/L Troponin I (0.00-0.056) ng/mL C-Reactive Protein 5.3 H* (<1.0) mg/dL NT-Pro-B Natriuret Pep (0-450) pg/mL Total Protein (6.4-8.2) g/dl Albumin (3.4-5.0) g/dl Globulin gm/dL Albumin/Globulin Ratio (1-2) TSH 3rd Generation (0.358-3.74) uIU/mL Urine Color Light yellow (Yellow) Urine Appearance Clear (Clear) Urine pH 7.0 (5.0-8.0) Ur Specific [place] 1.020 (1.005-1.030) Urine Protein Negative (Negative) Urine Glucose (UA) Negative (Negative) Urine Ketones Negative (Negative) Urine Occult Blood Negative (Negative) Urine Nitrite Negative (Negative) Urine Bilirubin Negative (Negative) Urine Urobilinogen 0.2 (0.2-1.0) Ur Leukocyte Esterase Negative (Negative) Urine RBC Not seen (0-5) /hpf Urine WBC Not seen (0-5) /hpf Ur Epithelial Cells 0-5 (0-5) /hpf Urine Bacteria Not seen (FEW) /hpf Urine Mucus Not seen (FEW) /hpf 03/10/18 Range/Units 05:51 WBC (4.23-9.07) K/mm3 RBC (4.63-6.08) M/mm3 Hgb (13.7-17.5) gm/L Hct (40.1-51.0) % MCV (79.0-92.2) fl MCH (25.7-32.2) pg MCHC (32.2-35.5) g/dl RDW Std Deviation (35.1-43.9) fL Plt Count (163-337) K/mm3 MPV (9.4-12.3) fl Neut % (Auto) (34.0-67.9) % Lymph % (Auto) (21.8-53.1) % [place] % (Auto) (5.3-12.2) % Eos % (Auto) (0.8-7.0) Baso % (Auto) (0.1-1.2) % Neut # (Auto) (1.78-5.38) K/mm3 Lymph # (Auto) (1.32-3.57) K/mm3 [place] # (Auto) (0.30-0.82) K/mm3 Eos # (Auto) (0.04-0.54) K/mm3 Baso # (Auto) (0.01-0.08) K/mm3 Neutrophils % (Manual) (40-60) % Band Neutrophils % (0-10) % Lymphocytes % (Manual) (20-40) % Atypical Lymphs % % Monocytes % (Manual) (2-10) % Eosinophils % (Manual) (0.8-7.0) % Basophils % (Manual) (0.2-1.2) Manual Slide Review Platelet Estimate Anisocytosis Macrocytosis RBC Morph Comment Sodium 139 (136-145) mEq/L Potassium 4.1 (3.5-5.1) mEq/L Chloride 103 (98-107) mEq/L Carbon Dioxide 29 (21-32) mEq/L Anion Gap 11.1 (5-15) BUN 21 H (7-18) mg/dL Creatinine 1.2 (0.7-1.3) mg/dL Est Cr Clr Drug Dosing 44.65 mL/min Estimated GFR (MDRD) 59 (>60) mL/min BUN/Creatinine Ratio 17.5 (14-18) Glucose 94 (83-115) mg/dL Calcium 8.6 (8.5-10.1) mg/dL Magnesium (1.8-2.4) mg/dl Total Bilirubin (0.2-1.0) mg/dL AST (15-37) U/L ALT (16-63) U/L Alkaline Phosphatase (46-116) U/L Troponin I (0.00-0.056) ng/mL C-Reactive Protein 5.5 H* (<1.0) mg/dL NT-Pro-B Natriuret Pep (0-450) pg/mL Total Protein (6.4-8.2) g/dl Albumin (3.4-5.0) g/dl Globulin gm/dL Albumin/Globulin Ratio (1-2) TSH 3rd Generation (0.358-3.74) uIU/mL Urine Color (Yellow) Urine Appearance (Clear) Urine pH (5.0-8.0) Ur Specific [place] (1.005-1.030) Urine Protein (Negative) Urine Glucose (UA) (Negative) Urine Ketones (Negative) Urine Occult Blood (Negative) Urine Nitrite (Negative) Urine Bilirubin (Negative) Urine Urobilinogen (0.2-1.0) Ur Leukocyte Esterase (Negative) Urine RBC (0-5) /hpf Urine WBC (0-5) /hpf Ur Epithelial Cells (0-5) /hpf Urine Bacteria (FEW) /hpf Urine Mucus (FEW) /hpf Med Orders - Current: Current Medications Acetaminophen (Tylenol) 650 mg PO Q4H PRN PRN Reason: Pain (Mild 1-3)/fever Albuterol (Proventil Neb Soln) 2.5 mg NEB Q2H PRN PRN Reason: Shortness Of Breath/wheezing Albuterol/Ipratropium (Duoneb 3.0-0.5 Mg/3 Ml) 3 ml NEB Q4H PRN PRN Reason: Shortness Of Breath/wheezing Benzocaine/Menthol (Cepacol Sore Throat) 1 lozenge MUCMEM Q4HR PRN PRN Reason: Cough Last Admin: 03/09/18 20:40 Dose: 1 lozenge Bisacodyl (Dulcolax) 5 mg PO DAILY PRN PRN Reason: Constipation Docusate Sodium (Colace) 100 mg PO BID PRN PRN Reason: Constipation Dronabinol (Marinol) 2.5 mg PO TIDAC [facility] Enoxaparin Sodium (Lovenox) 30 mg SUBCUT Q24H [facility] Famotidine (Pepcid) 20 mg PO BID [facility] Last Admin: 03/09/18 20:58 Dose: 20 mg Hydralazine HCl (Apresoline) 20 mg IVPUSH Q4H PRN PRN Reason: Hypertension Last Admin: 03/09/18 22:25 Dose: 20 mg Sodium Chloride (Normal Saline) 250 mls @ 80 mls/hr IV ASDIRECTED [facility] Last Admin: 03/09/18 14:13 Dose: 80 mls/hr Furosemide 100 mg/ Sodium (Chloride) 100 mls @ 3 mls/hr IV TITRATE [facility] [place]; Protocol Last Admin: 03/10/18 01:19 Dose: 3 mls/hr Lorazepam (Ativan) 2 mg IVPUSH Q4H PRN PRN Reason: Seizures Magnesium Hydroxide (Milk Of Magnesia) 30 ml PO Q12H PRN PRN Reason: Constipation Magnesium Sulfate (Pharmacy To Dose - Magnesium Replacement) 1 dose .XX ASDIRECTED [facility] [place] Metoprolol Tartrate (Lopressor) 5 mg IVPUSH Q4H PRN PRN Reason: Tachycardia Last Admin: 03/10/18 00:04 Dose: 5 mg Mirtazapine (Remeron) 30 mg PO BEDTIME [facility] [place] Last Admin: 03/09/18 20:57 Dose: 30 mg Morphine Sulfate (Morphine) 1 mg IVPUSH Q4H PRN PRN Reason: Pain (severe 7-10) Stop: 03/13/18 17:47 Last Admin: 03/10/18 06:35 Dose: 1 mg Ondansetron HCl (Zofran Odt) 4 mg PO Q4H PRN PRN Reason: nausea, able to take PO Ondansetron HCl (Zofran) 4 mg IV Q4H PRN PRN Reason: Nausea/Vomiting Oxycodone/Acetaminophen (Percocet 325-5 Mg) 1 tab PO Q4H PRN PRN Reason: Pain (moderate 4-6) Polyethylene Glycol (Miralax) 17 gm PO DAILY PRN PRN Reason: Constipation Potassium Chloride (Pharmacy To Dose - Potassium Replacement) 1 dose .XX ASDIRECTED [facility] Senna/Docusate Sodium (Senna Plus) 1 tab PO BID PRN PRN Reason: Constipation Sodium Chloride (Saline Flush) 10 ml FLUSH ASDIRECTED PRN PRN Reason: Keep Vein Open Last Admin: 03/09/18 12:13 Dose: 10 ml Sodium Chloride (Saline Flush) 10 ml FLUSH ONETIME PRN PRN Reason: IV FLUSH Sodium Chloride (Saline Flush) 10 ml FLUSH ONETIME PRN PRN Reason: IV FLUSH Last Admin: 03/09/18 14:13 Dose: 10 ml Temazepam (Restoril) 7.5 mg PO BEDTIME PRN PRN Reason: Sleep Discontinued Medications Furosemide (Lasix) 40 mg IVPUSH NOW ONE Stop: 03/09/18 11:33 Last Admin: 03/09/18 12:13 Dose: 40 mg Hydromorphone HCl (Dilaudid) 0.5 mg IVPUSH Q2H PRN PRN Reason: Pain (severe 7-10) Furosemide 100 mg/ Sodium (Chloride) 100 mls @ 3 mls/hr IV TITRATE [facility]; Protocol Iopamidol (Isovue-300 (61%)) 100 ml IVPUSH ONETIME ONE Stop: 03/09/18 13:57 Iopamidol (Isovue-370 (76%)) 100 ml IVPUSH ONETIME ONE Stop: 03/09/18 14:12 Last Admin: 03/09/18 14:13 Dose: 100 ml Magnesium Oxide (Magnesium Oxide) 400 mg PO ONETIME ONE Stop: 03/09/18 20:31 Last Admin: 03/09/18 20:57 Dose: 400 mg Morphine Sulfate (Morphine) 2 mg IVPUSH Q2H PRN PRN Reason: Pain (severe 7-10) Stop: 03/10/18 17:47 Morphine Sulfate (Morphine) 1 mg IVPUSH ONETIME ONE Stop: 03/09/18 17:49 Last Admin: 03/09/18 18:13 Dose: 1 mg Potassium Chloride (Klor-Con M20) 40 meq PO Q4H [facility] Stop: 03/10/18 01:01 Last Admin: 03/10/18 00:11 Dose: 40 meq - My Orders Last 24 Hours: My Active Orders 03/09/18 18:37 Benzocaine/Cetylpyrd/Menthol [Cepacol Sore Throat] 1 lozenge MUCMEM Q4HR PRN 03/09/18 19:00 Incentive Spirometry [RT Incentive Spirometry] [RC] ASDIRECTED 03/09/18 20:11 LORazepam [Ativan] 2 mg IVPUSH Q4H PRN Metoprolol Tartrate [Lopressor] 5 mg IVPUSH Q4H PRN hydrALAZINE [Apresoline] 20 mg IVPUSH Q4H PRN 03/09/18 20:12 Morphine 1 mg IVPUSH Q4H PRN 03/09/18 20:15 Magnesium Rep Pharmacy to Dose [Pharmacy to Dose - Magnesium Replacement] 1 dose .XX ASDIRECTED Potassium Rep Pharmacy to Dose [Pharmacy to Dose - Potassium Replacement] 1 dose .XX ASDIRECTED 03/09/18 21:00 Mirtazapine [Remeron] 30 mg PO BEDTIME 03/10/18 01:00 Furosemide [Lasix] 100 mg Sodium Chloride 0.9% [Normal Saline] 90 ml IV TITRATE 03/10/18 07:00 Dronabinol [Marinol] 2.5 mg PO TIDAC 03/10/18 09:00 Enoxaparin [Lovenox] 30 mg SUBCUT Q24H - Plan Plan:: I/P: Acute: End of Life Care -Comfort Care -Symptomatic treatment 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 -SOB with exertion, orthopnea, PND, bilateral leg edema -O2 84% on room air--> 98% on 2L nasal cannula -Lasix IV 40 mg given in ED -BNP 555, CRP 5.3 -CXR in ED--> metastatic disease with small pleural effusions within both sides of the chest -Chest CT in ED--> Bilateral pleural effusions with atelectasis on both sides of the lungs, metastatic nodules -Titrate O2 as needed to keep > 92% -Bilateral therapeutic thoracentesis indicated at this time Chachexia -Regular Diet -Consider Marinol, Steroids, or Remeron to help stimulate appetite Dilated left renal pelvis -Found on CT today -F/U with urology outpt; need retrograde study to further evaluate Chronic: 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 Jerome Tatum Consult CM--> Need appt with urologist for dilated left renal pelvis found on CT today
--- NOTE | 2018-03-10 07:46 | PCM.PRNOTE ---
- Free Text/Narrative Note: DATE OF PROCEDURE: 03/10/2018 PREOPERATIVE DIAGNOSIS: Bilateral Pleural Effusion POSTOPERATIVE DIAGNOSIS: Left Sided Pleural Effusion PROCEDURE PERFORMED: U/S Guided Therapeutic Left Sided Thoracentesis SURGEON: Elio Alanis DO ARBOREAL SCIENTIST: Carolyn Lofton RN DESCRIPTION OF PROCEDURE: After informed consent was obtained, signed, the patient had ultrasound localization in the left hemithorax. The patient was sterilely prepped and topical lidocaine was induced. Stab incision was made and a thoracentesis catheter was inserted and 175 mL of clear kristen colored fluid was obtained without difficulty. Estimated Blood Loss: Minimal The patient tolerated the procedure well w/o any complications. Post procedure chest x-ray is pending.
[2018-03-10] MEDS: Dronabinol 2.5 MG Cap PO SCH ×3 (09:24→17:18)
[2018-03-10] MEDS: Famotidine 20 MG Tab PO SCH (09:24)
[2018-03-10] MEDS: Enoxaparin 40 MG/0.4 ML Syringe SUBCUT SCH (13:29)
[2018-03-10] MEDS: Benzocaine/Cetylpyridinium/Menthol Lozenge MUCMEM PRN (17:22)
[2018-03-10] MEDS: Mirtazapine 30 MG Tab PO SCH (20:45)
[2018-03-11] MEDS: Dronabinol 2.5 MG Cap PO SCH ×3 (06:13→17:13)
--- NOTE | 2018-03-11 07:06 | PCM.PN ---
- General Info Date of Service: 03/11/18 Admission Dx/Problem (Free Text): Admission Diagnosis/Problem Admission Diagnosis/Problem Hypoxia Subjective Update: Follow up Functional Status: Reports: Pain Controlled, Tolerating Diet, Ambulating, Urinating. Denies: New Symptoms - Review of Systems General: Denies: Fever, Chills HEENT: Reports: No Symptoms Pulmonary: Reports: Shortness of Breath (basline) Cardiovascular: Reports: Chest Pain (MSK), Edema. Denies: Palpitations, Dyspnea on Exertion, Lightheadedness Gastrointestinal: Reports: Decreased Appetite. Denies: Abdominal Pain, Nausea, Vomiting Genitourinary: Reports: No Symptoms Musculoskeletal: Reports: Back Pain Neurological: Reports: Difficulty Walking, Weakness. Denies: Confusion, Gait Disturbance Psychiatric: Denies: Depression, Anxiety, Hallucinations Systems Review Comment:: No significant overnight or acute issues. This time he took the sleeping pill. He rested well and has no new complaints. His appetite is still poor. - Patient Data Vitals - Most Recent: Last Vital Signs Temp 37.2 C 03/11/18 05:42 Pulse 96 03/11/18 05:42 Resp 19 03/10/18 20:41 BP 136/76 03/11/18 05:42 Pulse Ox 93 L 03/11/18 05:42 Weight - Most Recent: 61.235 kg I&O - Last 24 Hours: Intake & Output 03/10/18 03/11/18 03/11/18 22:59 06:59 14:59 Intake Total 231 Output Total 975 Balance -744 Lab Results Last 24 Hours: Laboratory Results - last 24 hr 03/11/18 Range/Units 06:12 WBC 7.71 (4.23-9.07) K/mm3 RBC 3.93 L (4.63-6.08) M/mm3 Hgb 12.9 L (13.7-17.5) gm/L Hct 40.8 (40.1-51.0) % MCV 103.8 H (79.0-92.2) fl MCH 32.8 H (25.7-32.2) pg MCHC 31.6 L (32.2-35.5) g/dl RDW Std Deviation 63.9 H (35.1-43.9) fL Plt Count 197 (163-337) K/mm3 MPV 9.5 (9.4-12.3) fl Neut % (Auto) 77.0 H (34.0-67.9) % Lymph % (Auto) 11.8 L (21.8-53.1) % [place] % (Auto) 9.9 (5.3-12.2) % Eos % (Auto) 0.9 (0.8-7.0) Baso % (Auto) 0.1 (0.1-1.2) % Neut # (Auto) 5.94 H (1.78-5.38) K/mm3 Lymph # (Auto) 0.91 L (1.32-3.57) K/mm3 [place] # (Auto) 0.76 (0.30-0.82) K/mm3 Eos # (Auto) 0.07 (0.04-0.54) K/mm3 Baso # (Auto) 0.01 (0.01-0.08) K/mm3 [facility] Results Last 24 Hours: Microbiology 03/09/18 12:54 Aerobic Blood Culture - Preliminary Blood - Venous NO GROWTH AFTER 1 DAY Anaerobic Blood Culture - Preliminary NO GROWTH AFTER 1 DAY 03/09/18 13:04 Aerobic Blood Culture - Preliminary Blood - Venous - Lab Draw NO GROWTH AFTER 1 DAY Anaerobic Blood Culture - Preliminary NO GROWTH AFTER 1 DAY Med Orders - Current: Current Medications Acetaminophen (Tylenol) 650 mg PO Q4H PRN PRN Reason: Pain (Mild 1-3)/fever Last Admin: 03/11/18 06:11 Dose: 650 mg Albuterol (Proventil Neb Soln) 2.5 mg NEB Q2H PRN PRN Reason: Shortness Of Breath/wheezing Albuterol/Ipratropium (Duoneb 3.0-0.5 Mg/3 Ml) 3 ml NEB Q4H PRN PRN Reason: Shortness Of Breath/wheezing Benzocaine/Menthol (Cepacol Sore Throat) 1 lozenge MUCMEM Q4HR PRN PRN Reason: Cough Last Admin: 03/10/18 17:22 Dose: 1 lozenge Bisacodyl (Dulcolax) 5 mg PO DAILY PRN PRN Reason: Constipation Docusate Sodium (Colace) 100 mg PO BID PRN PRN Reason: Constipation Dronabinol (Marinol) 2.5 mg PO TIDAC [facility] Last Admin: 03/11/18 06:13 Dose: 2.5 mg Enoxaparin Sodium (Lovenox) 40 mg SUBCUT [address] [facility] Last Admin: 03/10/18 13:29 Dose: 40 mg Famotidine (Pepcid) 20 mg PO DAILY [facility] Last Admin: 03/10/18 09:24 Dose: 20 mg Hydralazine HCl (Apresoline) 20 mg IVPUSH Q4H PRN PRN Reason: Hypertension Last Admin: 03/09/18 22:25 Dose: 20 mg Sodium Chloride (Normal Saline) 250 mls @ 80 mls/hr IV ASDIRECTED [facility] Last Admin: 03/09/18 14:13 Dose: 80 mls/hr Furosemide 100 mg/ Sodium (Chloride) 100 mls @ 3 mls/hr IV TITRATE [facility]; Protocol Lorazepam (Ativan) 2 mg IVPUSH Q4H PRN PRN Reason: Seizures Magnesium Hydroxide (Milk Of Magnesia) 30 ml PO Q12H PRN PRN Reason: Constipation Last Admin: 03/10/18 22:11 Dose: 30 ml Magnesium Sulfate (Pharmacy To Dose - Magnesium Replacement) 1 dose .XX ASDIRECTED [facility] Metoprolol Tartrate (Lopressor) 5 mg IVPUSH Q4H PRN PRN Reason: Tachycardia Last Admin: 03/10/18 00:04 Dose: 5 mg Mirtazapine (Remeron) 30 mg PO BEDTIME [facility] Last Admin: 03/10/18 20:45 Dose: 30 mg Morphine Sulfate (Morphine) 1 mg IVPUSH Q4H PRN PRN Reason: Pain (severe 7-10) Stop: 03/13/18 17:47 Last Admin: 03/10/18 09:52 Dose: 1 mg Ondansetron HCl (Zofran Odt) 4 mg PO Q4H PRN PRN Reason: nausea, able to take PO Ondansetron HCl (Zofran) 4 mg IV Q4H PRN PRN Reason: Nausea/Vomiting Oxycodone/Acetaminophen (Percocet 325-5 Mg) 1 tab PO Q4H PRN PRN Reason: Pain (moderate 4-6) Polyethylene Glycol (Miralax) 17 gm PO DAILY PRN PRN Reason: Constipation Potassium Chloride (Pharmacy To Dose - Potassium Replacement) 1 dose .XX ASDIRECTED [facility] Senna/Docusate Sodium (Senna Plus) 1 tab PO BID PRN PRN Reason: Constipation Sodium Chloride (Saline Flush) 10 ml FLUSH ASDIRECTED PRN PRN Reason: Keep Vein Open Last Admin: 03/09/18 12:13 Dose: 10 ml Sodium Chloride (Saline Flush) 10 ml FLUSH ONETIME PRN PRN Reason: IV FLUSH Sodium Chloride (Saline Flush) 10 ml FLUSH ONETIME PRN PRN Reason: IV FLUSH Last Admin: 03/09/18 14:13 Dose: 10 ml Temazepam (Restoril) 7.5 mg PO BEDTIME PRN PRN Reason: Sleep Last Admin: 03/10/18 22:09 Dose: 7.5 mg Discontinued Medications Famotidine (Pepcid) 20 mg PO BID [facility] Last Admin: 03/09/18 20:58 Dose: 20 mg Furosemide (Lasix) 40 mg IVPUSH NOW ONE Stop: 03/09/18 11:33 Last Admin: 03/09/18 12:13 Dose: 40 mg Heparin Sodium (Porcine) (Heparin Lock Flush 100 Units/Ml) 500 units FLUSH ASDIRECTED ONE Stop: 03/10/18 13:01 Last Admin: 03/10/18 13:27 Dose: 500 units Hydromorphone HCl (Dilaudid) 0.5 mg IVPUSH Q2H PRN PRN Reason: Pain (severe 7-10) Furosemide 100 mg/ Sodium (Chloride) 100 mls @ 3 mls/hr IV TITRATE [facility]; Protocol Furosemide 100 mg/ Sodium (Chloride) 100 mls @ 3 mls/hr IV TITRATE [facility]; Protocol Last Admin: 03/10/18 01:19 Dose: 3 mls/hr Iopamidol (Isovue-300 (61%)) 100 ml IVPUSH ONETIME ONE Stop: 03/09/18 13:57 Iopamidol (Isovue-370 (76%)) 100 ml IVPUSH ONETIME ONE Stop: 03/09/18 14:12 Last Admin: 03/09/18 14:13 Dose: 100 ml Magnesium Oxide (Magnesium Oxide) 400 mg PO ONETIME ONE Stop: 03/09/18 20:31 Last Admin: 03/09/18 20:57 Dose: 400 mg Morphine Sulfate (Morphine) 2 mg IVPUSH Q2H PRN PRN Reason: Pain (severe 7-10) Stop: 03/10/18 17:47 Morphine Sulfate (Morphine) 1 mg IVPUSH ONETIME ONE Stop: 03/09/18 17:49 Last Admin: 03/09/18 18:13 Dose: 1 mg Potassium Chloride (Klor-Con M20) 40 meq PO Q4H [facility]ANNA Stop: 03/10/18 01:01 Last Admin: 03/10/18 00:11 Dose: 40 meq - Exam Quality Assessment: Supplemental Oxygen General: Alert, Cooperative, No Acute Distress HEENT: Pupils Equal, Pupils Reactive, EOMI, Mucous Membr. Moist/[place] Neck: Supple, Trachea Midline, No JVD Lungs: Normal Respiratory Effort, Decreased Breath Sounds, Crackles Cardiovascular: Regular Rate, Regular Rhythm GI/Abdominal Exam: Normal Bowel Sounds, Soft, Non-Tender, No Organomegaly, No Distention, No Abnormal Bruit, No Mass (Male) Exam: Deferred Back Exam: Normal Inspection, Decreased Range of Motion Extremities: Normal Inspection, Normal Range of Motion, Non-Tender, Pedal Edema Peripheral Pulses: 2+: Dorsalis Pedis (L), Dorsalis Pedis (R) Skin: Warm, Dry, Intact Neurological: No New Focal Deficit Psy/Mental Status: Alert, Normal Affect, Normal Mood - Problem List Review Problem List Initiated/Reviewed/Updated: Yes - My Orders Last 24 Hours: My Active Orders 03/10/18 07:00 Dronabinol [Marinol] 2.5 mg PO TIDAC 03/10/18 10:08 Chest 1V Frontal [CR] Routine 03/10/18 11:00 Enoxaparin [Lovenox] 40 mg SUBCUT 1100 03/10/18 11:19 Consult to Speech Language Pathology [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 and Treatment] [CONS] Routine 03/10/18 Lunch Mechanical Soft Diet [DIET] 03/11/18 06:00 Furosemide [Lasix] 100 mg Sodium Chloride 0.9% [Normal Saline] 90 ml IV TITRATE - Plan Plan:: I/P: Acute: End of Life Care -Comfort Care -Symptomatic treatment Malignant Pleural Effusion, Improved S/p Bilateral Thoracentesis -Risk factor: 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 -SOB with exertion, orthopnea, PND, bilateral leg edema -O2 84% on room air--> 98% on 2L nasal cannula -Lasix IV 40 mg given in ED; now lasix drip to remove anasarca -BNP 555, CRP 5.3--> 5.5 -CXR in ED--> metastatic disease with small pleural effusions within both sides of the chest -Chest CT in ED--> Bilateral pleural effusions with atelectasis on both sides of the lungs, metastatic nodules -Titrate O2 as needed to keep > 92% -Bilateral therapeutic thoracentesis indicated at this time Chachexia with Decreased Appetite -2/2 Malignancy -He has poor appetite -Regular Diet - On Rememron 30 mg po QHS and Marinol 2.5 mg po TID before meals Dilated Left Renal Pelvis -Found on CT today -F/U with urology outpt; need retrograde study to further evaluate Generalized Metastatic Pain - PRN Pain medications Insomnia - PRN low dose Restoril - He wants to take it again tonight Chronic: 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 Will continue with lasix drip daytime today Other orders as indicated above Discontinue routine AM labs Continue PT/OT DVT Prophylaxis: DANE hose and Lovenox GI Prophylaxis: H2B Ambulate as tolerated Encouraged to ask for sleeping pill at bedtime Code Status: DNR/DNI/Comfort Measures; PCP: Dr. Jerome Tatum Consult CM--> Need appt with urologist for dilated left renal pelvis found on CT today Poor overall prognosis. Recommend Hospice/Palliative Care on Discharge. Discharge in AM
[2018-03-11] MEDS: Famotidine 20 MG Tab PO SCH (09:00)
[2018-03-11] MEDS: Enoxaparin 40 MG/0.4 ML Syringe SUBCUT SCH (11:41)
[2018-03-11] MEDS: Furosemide 100 MG in Sodium Chloride 0.9% 90 ML IV SCH ×2 (15:51→15:54)
[2018-03-11] MEDS: Mirtazapine 30 MG Tab PO SCH (21:54)
[2018-03-12] MEDS: Dronabinol 2.5 MG Cap PO SCH ×2 (06:23→11:52)
--- NOTE | 2018-03-12 08:31 | CR ---
Chest: Frontal view of the chest was obtained. Comparison: Prior chest x-ray of 03/09/18. Small left sided pleural effusion is seen. Minimal pleural effusion also noted within the right lung base most likely loculated. Diffuse pulmonary nodules are seen on both sides of the chest which are stable. Right-sided infusion port is seen. Surgical clips seen within the upper abdomen. Degenerative change is noted within both shoulders as well as mild degenerative change scattered within the spine. Impression: 1. Small pleural effusions on both sides. 2. Evidence of metastatic disease within the lungs. 3. Other incidental findings. Diagnostic code #9 I agree with preliminary report from [facility], finalized at 03/10/18, 11:40 AM Central Time
[2018-03-12] MEDS: Famotidine 20 MG Tab PO SCH (09:17)
[2018-03-12] MEDS: Enoxaparin 40 MG/0.4 ML Syringe SUBCUT SCH (11:52)
--- NOTE | 2018-03-12 13:04 | PCM.DCSUM1 ---
Discharge Summary - Hospital Course HPI Initial Comments: Patient is a 77-year-old male who presents ED complaining of bilateral lower extremity swelling with increasing shortness of breath over the past 2 wks. 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 At one point patient was on chemotherapy to which has been discontinued. Currently he has a history of heart murmur secondary to rheumatic fever. Patient is more short of breath with exertion. He's been experiencing orthopnea with PND. Patient has been evaluated by cardiology and has had a echocardiogram and stress test with findings. Unknown when this occurred. Patient denies any increase weight as of recent. Baseline is approximately 135 pounds. Sputum has been clear frothy at times. He has no history of congestive heart failure. There's been no diarrhea Patient denies any fevers, chills, diaphoresis, nausea/ vomiting, blood in stool, and dysuria. He denies any additional medical history and is currently on no medications. Surgical history includes colectomy 20%, removal of liver approximate 9%, ankle cystectomy. Patient's PCP is Dr. Tatum. Patient does not smoke utilize alcohol or recreational drugs. - Discharge Data Discharge Date: 03/12/18 Discharge Disposition: DC/Tfer to Hospice - Home 50 Condition: Good - Discharge Diagnosis/Problem(s) (1) End of life care SNOMED Code(s): 092212501, 001448084 ICD Code: Z51.5 - ENCOUNTER FOR PALLIATIVE CARE Status: Acute Priority: High Current Visit: Yes (2) Malignant pleural effusion SNOMED Code(s): 58318586 ICD Code: J91.0 - MALIGNANT PLEURAL EFFUSION Status: Acute Priority: High Current Visit: Yes (3) Stage IV carcinoma of colon SNOMED Code(s): 644728053 ICD Code: C18.9 - MALIGNANT NEOPLASM OF COLON, UNSPECIFIED Status: Chronic Priority: Low Current Visit: Yes (4) Stage IV adenocarcinoma of prostate SNOMED Code(s): 521367448, 542206014 ICD Code: C61 - MALIGNANT NEOPLASM OF PROSTATE Status: Chronic Priority: Low Current Visit: Yes (5) Metastasis to lung SNOMED Code(s): 01169075 ICD Code: C78.00 - SECONDARY MALIGNANT NEOPLASM OF UNSPECIFIED LUNG Status : Chronic Priority: Low Current Visit: Yes Qualifiers: Laterality: unspecified laterality Qualified Code(s): C78.00 - Secondary malignant neoplasm of unspecified lung (6) Cachexia SNOMED Code(s): 565576661 ICD Code: R64 - CACHEXIA Status: Chronic Priority: Low Current Visit: Yes (7) Dilated renal pelvis SNOMED Code(s): 135711205 ICD Code: N28.89 - OTHER SPECIFIED DISORDERS OF KIDNEY AND URETER Status: Acute Priority: Medium Current Visit: Yes (8) Metastases to the liver Status: Chronic Priority: Low Current Visit: Yes - Patient Summary/Data Operative Procedure(s) Performed: none Complications: none Consults: Consultations 03/09/18 12:27 Consult to Coal Tower Operator [CONS] Routine 03/09/18 17:30 Consult to Case Management [CONS] Routine Consult to Spiritual Care [CONS] Routine OT Evaluation and Treatment [CONS] Routine PT Evaluation and Treatment [CONS] Routine Respiratory Care Assess and Treatment [CONS] Routine 03/10/18 11:19 Consult to Speech Language Pathology [STENCIL CUTTER Evaluation and Treatment] [CONS] Routine 03/12/18 12:11 Consult to Hospice [CONS] Routine Labs Pending at D/C: none Recommended Follow-up Testing/Procedures: Follow up with PCP in 7-10 days F/u with urologist for possible renal obstruction (Dilated Left renal pelvis found on CT here in ED) Home with home health and then HOSPICE ONCE SERVICES ARE AVAILABLE. Planned Operative Procedure(s) after DC: none Hospital Course: I/P: Acute: End of Life Care -Comfort Care -Symptomatic treatment Malignant Pleural Effusion, Improved S/p Bilateral Thoracentesis -Risk factor: 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 -SOB with exertion, orthopnea, PND, bilateral leg edema -O2 84% on room air--> 98% on 2L nasal cannula -Lasix IV 40 mg given in ED; now lasix drip to remove anasarca -BNP 555, CRP 5.3--> 5.5-->8 -CXR in ED--> metastatic disease with small pleural effusions within both sides of the chest -Chest CT in ED--> Bilateral pleural effusions with atelectasis on both sides of the lungs, metastatic nodules -Titrate O2 as needed to keep > 92% -Bilateral therapeutic thoracentesis indicated at this time Chachexia with Decreased Appetite -2/2 Malignancy -He has poor appetite -Regular Diet -On Rememron 30 mg po QHS and Marinol 2.5 mg po TID before meals Dilated Left Renal Pelvis -Found on CT today -F/U with urology outpt; need retrograde study to further evaluate Generalized Metastatic Pain - PRN Pain medications Insomnia - PRN low dose Restoril - He wants to take it again tonight Chronic: 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 Will continue with lasix drip daytime today Other orders as indicated above Discontinue routine AM labs Continue PT/OT DVT Prophylaxis: DANE hose and Lovenox GI Prophylaxis: H2B Ambulate as tolerated Encouraged to ask for sleeping pill at bedtime Code Status: DNR/DNI/Comfort Measures; PCP: Dr. Jerome Tatum Consult CM--> Need appt with urologist for dilated left renal pelvis found on CT today Poor overall prognosis. Recommend Hospice/Palliative Care on Discharge. Discharge today. Solitario is feeling better after getting therapeutic thoracentesis bilaterally. He is still requiring 2L nasal cannula to keep his O2 >92%, therefore he will need oxygen at home. He should follow-up with her primary care provider in 7-10 days. Solitario and his family are aware of his poor prognosis due to his Cancer and have decided to go ahead with Hospice. Since he now requires at-home oxygen , we will start him with home health and switch to hospice as soon as services become available. He was discharged home on comfort care medications. He will be discharged home on hospice today. - Patient Instructions Diet: Heart Healthy Diet Activity: As Tolerated Driving: Do Not Drive Showering/Bathing: May Shower Notify Provider of: Fever, Increased Pain, Swelling and Redness, Drainage, Nausea and/or Vomiting - Discharge Plan Prescriptions/Med Rec: Dronabinol [Marinol] 5 mg PO TIDAC PRN #180 cap PRN Reason: Appetite Stimulant Mirtazapine [Remeron] 30 mg PO BEDTIME #30 tablet Morphine [Morphine 20 MG/ML Soln] 20 mg PO ASDIRECTED PRN #5 ml PRN Reason: Pain/Dysnea Non-Formulary Medication [NF Drug] 0.5 ml SL Q4H PRN #30 each PRN Reason: Anxiety/Agitation Ondansetron [Zofran ODT] 4 mg PO Q4H PRN #15 tab.dis PRN Reason: nausea, able to take PO Temazepam [Restoril] 7.5 mg PO BEDTIME PRN #15 cap PRN Reason: Sleep/Insomia Home Medications: Home Meds Dronabinol [Marinol] 5 mg PO TIDAC PRN #180 cap 03/12/18 [Rx] Mirtazapine [Remeron] 30 mg PO BEDTIME #30 tablet 03/12/18 [Rx] Morphine [Morphine 20 MG/ML Soln] 20 mg PO ASDIRECTED PRN #5 ml 03/12/18 [Rx] Non-Formulary Medication [NF Drug] 0.5 ml SL Q4H PRN #30 each 03/12/18 [Rx] Ondansetron [Zofran ODT] 4 mg PO Q4H PRN #15 tab.dis 03/12/18 [Rx] Temazepam [Restoril] 7.5 mg PO BEDTIME PRN #15 cap 03/12/18 [Rx] Patient Handouts: Thoracentesis, Care After, Pleural Effusion, Lung Cancer Referrals: Jerome Tatum Jr, MD [Primary Care Provider] - - Discharge Summary/Plan Comment DC Time >30 min.: Yes (40) - General Info Date of Service: 03/12/18 Admission Dx/Problem (Free Text: Admission Diagnosis/Problem Admission Diagnosis/Problem Hypoxia Subjective Update: In to see Solitario today. He is lying in bed visiting with family. Overall he is doing well. He has no complaints except for some mild abdominal pain, which he states comes and goes depending on whether he needs to have a bowel movement. He has been sleeping well. Appetite is improving with medication. Ambulating as tolerated. Pain is controlled. No nausea, vomiting, diarrhea. Urinating. No concerns from nursing. Will be DCd back to home today with hospice. He is still requiring 2L nasal cannula to keep his O2 >92%, therefore he will need oxygen at home. Functional Status: Reports: Pain Controlled, Tolerating Diet, Ambulating, Urinating, Incentive Spirometry - Review of Systems General: Reports: Weakness. Denies: Fever, Chills HEENT: Reports: No Symptoms Pulmonary: Reports: Shortness of Breath (improving s/p thoracentesis) Cardiovascular: Reports: Dyspnea on Exertion, Edema (bilateral, to the knees). Denies: Chest Pain Gastrointestinal: Reports: Abdominal Pain (comes and goes, usually sign that he needs to go to the bathroom). Denies: Constipation, Diarrhea, Nausea, Vomiting Genitourinary: Reports: No Symptoms. Denies: Dysuria, Frequency, Burning, Pain , Urgency Musculoskeletal: Reports: No Symptoms Skin: Reports: No Symptoms Neurological: Reports: No Symptoms Psychiatric: Reports: No Symptoms - Patient Data Vitals - Most Recent: Last Vital Signs Temp 99.1 F 03/12/18 11:19 Pulse 80 03/12/18 11:19 Resp 17 03/12/18 11:19 BP 117/78 03/12/18 11:19 Pulse Ox 95 03/12/18 11:19 Weight - Most Recent: 135 lb I&O - Last 24 hours: Intake & Output 03/11/18 03/12/18 03/12/18 22:59 06:59 14:59 Intake Total 438 360 580 Output Total 800 300 Balance -362 60 580 LUIS Results - Last 24 hrs: Microbiology 03/09/18 12:54 Aerobic Blood Culture - Preliminary Blood - Venous NO GROWTH AFTER 2 DAYS Anaerobic Blood Culture - Preliminary NO GROWTH AFTER 2 DAYS 03/09/18 13:04 Aerobic Blood Culture - Preliminary Blood - Venous - Lab Draw NO GROWTH AFTER 2 DAYS Anaerobic Blood Culture - Preliminary NO GROWTH AFTER 2 DAYS Med Orders - Current: Current Medications Acetaminophen (Tylenol) 650 mg PO Q4H PRN PRN Reason: Pain (Mild 1-3)/fever Last Admin: 03/11/18 06:11 Dose: 650 mg Albuterol (Proventil Neb Soln) 2.5 mg NEB Q2H PRN PRN Reason: Shortness Of Breath/wheezing Albuterol/Ipratropium (Duoneb 3.0-0.5 Mg/3 Ml) 3 ml NEB Q4H PRN PRN Reason: Shortness Of Breath/wheezing Benzocaine/Menthol (Cepacol Sore Throat) 1 lozenge MUCMEM Q4HR PRN PRN Reason: Cough Last Admin: 03/10/18 17:22 Dose: 1 lozenge Bisacodyl (Dulcolax) 5 mg PO DAILY PRN PRN Reason: Constipation Docusate Sodium (Colace) 100 mg PO BID PRN PRN Reason: Constipation Dronabinol (Marinol) 2.5 mg PO TIDAC [facility] Last Admin: 03/12/18 11:52 Dose: 2.5 mg Enoxaparin Sodium (Lovenox) 40 mg SUBCUT 1100 [facility] Last Admin: 03/12/18 11:52 Dose: 40 mg Famotidine (Pepcid) 20 mg PO DAILY [facility] Last Admin: 03/12/18 09:17 Dose: 20 mg Hydralazine HCl (Apresoline) 20 mg IVPUSH Q4H PRN PRN Reason: Hypertension Last Admin: 03/09/18 22:25 Dose: 20 mg Furosemide 100 mg/ Sodium (Chloride) 100 mls @ 3 mls/hr IV TITRATE [facility]; Protocol Last Admin: 03/11/18 15:54 Dose: 3 mls/hr Lorazepam (Ativan) 2 mg IVPUSH Q4H PRN PRN Reason: Seizures Magnesium Hydroxide (Milk Of Magnesia) 30 ml PO Q12H PRN PRN Reason: Constipation Last Admin: 03/10/18 22:11 Dose: 30 ml Magnesium Sulfate (Pharmacy To Dose - Magnesium Replacement) 1 dose .XX ASDIRECTED [facility] Metoprolol Tartrate (Lopressor) 5 mg IVPUSH Q4H PRN PRN Reason: Tachycardia Last Admin: 03/10/18 00:04 Dose: 5 mg Mirtazapine (Remeron) 30 mg PO BEDTIME [facility] Last Admin: 03/11/18 21:54 Dose: 30 mg Morphine Sulfate (Morphine) 1 mg IVPUSH Q4H PRN PRN Reason: Pain (severe 7-10) Stop: 03/13/18 17:47 Last Admin: 03/10/18 09:52 Dose: 1 mg Ondansetron HCl (Zofran Odt) 4 mg PO Q4H PRN PRN Reason: nausea, able to take PO Ondansetron HCl (Zofran) 4 mg IV Q4H PRN PRN Reason: Nausea/Vomiting Oxycodone/Acetaminophen (Percocet 325-5 Mg) 1 tab PO Q4H PRN PRN Reason: Pain (moderate 4-6) Polyethylene Glycol (Miralax) 17 gm PO DAILY PRN PRN Reason: Constipation Potassium Chloride (Pharmacy To Dose - Potassium Replacement) 1 dose .XX ASDIRECTED [facility] Senna/Docusate Sodium (Senna Plus) 1 tab PO BID PRN PRN Reason: Constipation Sodium Chloride (Saline Flush) 10 ml FLUSH ASDIRECTED PRN PRN Reason: Keep Vein Open Last Admin: 03/09/18 12:13 Dose: 10 ml Sodium Chloride (Saline Flush) 10 ml FLUSH ONETIME PRN PRN Reason: IV FLUSH Sodium Chloride (Saline Flush) 10 ml FLUSH ONETIME PRN PRN Reason: IV FLUSH Last Admin: 03/09/18 14:13 Dose: 10 ml Temazepam (Restoril) 7.5 mg PO BEDTIME PRN PRN Reason: Sleep Last Admin: 03/10/18 22:09 Dose: 7.5 mg Discontinued Medications Famotidine (Pepcid) 20 mg PO BID DIANNA Last Admin: 03/09/18 20:58 Dose: 20 mg Furosemide (Lasix) 40 mg IVPUSH NOW ONE Stop: 03/09/18 11:33 Last Admin: 03/09/18 12:13 Dose: 40 mg Heparin Sodium (Porcine) (Heparin Lock Flush 100 Units/Ml) 500 units FLUSH ASDIRECTED ONE Stop: 03/10/18 13:01 Last Admin: 03/10/18 13:27 Dose: 500 units Hydromorphone HCl (Dilaudid) 0.5 mg IVPUSH Q2H PRN PRN Reason: Pain (severe 7-10) Sodium Chloride (Normal Saline) 250 mls @ 80 mls/hr IV ASDIRECTED DIANNA Last Admin: 03/09/18 14:13 Dose: 80 mls/hr Furosemide 100 mg/ Sodium (Chloride) 100 mls @ 3 mls/hr IV TITRATE DIANNA; Protocol Furosemide 100 mg/ Sodium (Chloride) 100 mls @ 3 mls/hr IV TITRATE DIANNA; Protocol Last Admin: 03/10/18 01:19 Dose: 3 mls/hr Iopamidol (Isovue-300 (61%)) 100 ml IVPUSH ONETIME ONE Stop: 03/09/18 13:57 Iopamidol (Isovue-370 (76%)) 100 ml IVPUSH ONETIME ONE Stop: 03/09/18 14:12 Last Admin: 03/09/18 14:13 Dose: 100 ml Magnesium Oxide (Magnesium Oxide) 400 mg PO ONETIME ONE Stop: 03/09/18 20:31 Last Admin: 03/09/18 20:57 Dose: 400 mg Morphine Sulfate (Morphine) 2 mg IVPUSH Q2H PRN PRN Reason: Pain (severe 7-10) Stop: 03/10/18 17:47 Morphine Sulfate (Morphine) 1 mg IVPUSH ONETIME ONE Stop: 03/09/18 17:49 Last Admin: 03/09/18 18:13 Dose: 1 mg Potassium Chloride (Klor-Con M20) 40 meq PO Q4H DIANNA Stop: 03/10/18 01:01 Last Admin: 03/10/18 00:11 Dose: 40 meq - Exam Quality Assessment: Reports: Supplemental Oxygen (2L nasal cannula), DVT Prophylaxis General: Reports: Alert, Oriented, Cooperative, No Acute Distress HEENT: Reports: Pupils Equal, Pupils Reactive, EOMI, Mucous Membr. Moist/[place] Neck: Reports: Supple Lungs: Reports: Normal Respiratory Effort, Decreased Breath Sounds Cardiovascular: Reports: Regular Rate, Regular Rhythm GI/Abdominal Exam: Normal Bowel Sounds, Soft, Non-Tender, No Organomegaly, No Distention, No Abnormal Bruit, No Mass, Pelvis Stable (Male) Exam: Deferred Rectal (Males) Exam: Deferred Back Exam: Reports: Normal Inspection, Full Range of Motion Extremities: Normal Inspection, Normal Range of Motion, Non-Tender, Normal Capillary Refill, Pedal Edema (bilateral, to the knees) Skin: Reports: Warm, Dry, Intact Neurological: Reports: No New Focal Deficit Psy/Mental Status: Reports: Alert, Normal Affect, Normal Mood
== END 2018-03-12 14:20 | disposition hospice, home (50) | DRG 723 ==
LOC: JD.ED 10:20 → JD.MS 15:49
PROVIDERS: ADMIT Internal Medicine; ATTEND Internal Medicine
PROC: 0W993ZZ Drainage of Right Pleural Cavity, Percutaneous Approach (ICD-10-PCS; 2018-03-09)
PROC: 0W9B3ZZ Drainage of Left Pleural Cavity, Percutaneous Approach (ICD-10-PCS; principal; 2018-03-10)
DX: J90 Pleural effusion, not elsewhere classified (principal); C61 Malignant neoplasm of prostate; C78.7 Secondary malignant neoplasm of liver and intrahepatic bile duct; C78.00 Secondary malignant neoplasm of unspecified lung; J91.0 Malignant pleural effusion; C18.9 Malignant neoplasm of colon, unspecified; R64 Cachexia; N28.89 Other specified disorders of kidney and ureter; R09.02 Hypoxemia; R06.01 Orthopnea; R09.3 Abnormal sputum; R05 Cough; R10.9 Unspecified abdominal pain; R60.9 Edema, unspecified; R06.02 Shortness of breath; G89.3 Neoplasm related pain (acute) (chronic); G47.00 Insomnia, unspecified; R01.1 Cardiac murmur, unspecified; Z85.038 Personal history of other malignant neoplasm of large intestine; Z90.49 Acquired absence of other specified parts of digestive tract; Z92.21 Personal history of antineoplastic chemotherapy; Z88.8 Allergy status to other drugs, medicaments and biological substances; Z66 Do not resuscitate; Z51.5 Encounter for palliative care; Z68.21 Body mass index [BMI] 21.0-21.9, adult
CPT/HCPCS: 36415; 51798; 71260; 74022; 74177; 80053; 81001; 83735; 83880; 84443; 84484; 85007; 85027; 86140; 87040 ×2; 96374; 99285; J1940; J7050 ×3; Q9967; 71045; 71045-26; 76942; 80048; 85025; 92610-GN; 94760; 94761; 97161-GP; 97165-GO; 99223; 99232; 99239; A9270-GY; J0360; J1642; J1650; J2270; J3490; J7030; Q0167